=== PATIENT | male | born 1985 | race Caucasian/White ===

== ENCOUNTER → 2018-02-26 18:54 | Emergency (ER) | payer OTHER, MEDICARE, MEDICAID ==
[2018-02-26 19:15] VITALS: BP 137/116
--- NOTE | 2018-02-26 20:17 | ED ---
GI/ HPI - HPI Summary HPI Summary: Per family, patient with history of cerebral palsy has decreased urine output, increase in chronic agitation, diaphoresis since this a.m. Per family no other observed symptoms of illness or pain, including cough, N/V/D, SOB. Patient has [place] catheter. Patient has chronic back pain with a baclofen pump. Medical history as HTN, cerebral palsy, as reflux. 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 Hx From Patient Unobtainable Due To: Other Onset/Duration: Started Hours Ago Pain Intensity: 0 - Allergy/Home Medications Allergies/Adverse Reactions: Allergies Allergy/AdvReac Type Severity Reaction Status Date / Time atropine Allergy Eyes Verified 02/26/18 19:18 Itchy/Swollen/Red/Watery codeine Allergy Anaphylatic Verified 02/26/18 19:18 Shock midazolam [From Versed] Allergy Anaphylatic Verified 02/26/18 19:18 Shock omeprazole [From Prilosec] Allergy Difficulty Verified 02/26/18 19:18 Breathing scopolamine Allergy Eyes Verified 02/26/18 19:18 Itchy/Swollen/Red/Watery Sulfa (Sulfonamide Allergy Hives Verified 02/26/18 19:18 Antibiotics) PMH/Surg Hx/FS Hx/Imm Hx Endocrine/Hematology History: Denies: Hx Diabetes Cardiovascular History: Reports: Hx Hypertension Denies: Hx Pacemaker/ICD Respiratory History: Denies: Hx Asthma GI History: Reports: Hx Gastroesophageal Reflux Disease, Hx Hiatal Hernia Musculoskeletal History: Reports: Hx Scoliosis Sensory History: Reports: Hx Contacts or Glasses Denies: Hx Hearing Aid Opthamlomology History: Reports: Hx Contacts or Glasses Neurological History: Reports: Other Neuro Impairments/Disorders - CP Psychiatric History: Denies: Hx Panic Disorder - Surgical History Surgery Procedure, Year, and Place: ROSETOMY (nerves in back),TENDONS IN LEGS, RODS IN BACK AND HIP, HIATIAL HERNIA TWICE,CEREBRAL PALSEY. Infectious Disease History: No Infectious Disease History: Reports: Hx of Known/Suspected MRSA Denies: Traveled Outside the [place] in Last 30 Days - Family History Known Family History: Positive: Cardiac Disease, Hypertension, Other - dementia (mother) - Social History Alcohol Use: unable to determine Substance Use Type: Reports: None Smoking Status (MU): Never Smoked Tobacco Review of Systems - ROS Summary Review of Systems Summary: All answers provided by family. Patient unable to express himself Positive: Skin Diaphoresis Eyes: Negative ENT: Negative Cardiovascular: Negative Respiratory: Negative Gastrointestinal: Negative Genitourinary: Negative Musculoskeletal: Negative Skin: Negative Neurological: Negative Psychological: Normal All Other Systems Reviewed And Are Negative: Yes Physical Exam Triage Information Reviewed: Yes Vital Signs On Initial Exam: Initial Vitals Temp Pulse Resp BP Pulse Ox 99.3 F 126 20 137/116 100 02/26/18 19:10 02/26/18 19:10 02/26/18 19:10 02/26/18 19:10 02/26/18 19:10 Vital Signs Reviewed: Yes Skin: Positive: Warm Head/Face: Positive: Normal Head/Face Inspection Eyes: Positive: Normal ENT: Positive: Normal ENT inspection Neck: Positive: Supple Respiratory/Lung Sounds: Positive: Clear to Auscultation Cardiovascular: Positive: Normal Abdomen Description: Positive: Nontender Musculoskeletal: Positive: Normal Neurological: Positive: Normal Psychiatric: Positive: Normal AVPU Assessment: Alert - Nayeli Coma Scale Best Eye Response: 4 - Spontaneous Best Motor Response: 6 - Obeys Commands Best Verbal Response: 5 - Oriented Coma Scale Total: 15 Diagnostics - Vital Signs Vital Signs Temp Pulse Resp BP Pulse Ox 02/26/18 19:10 99.3 F 126 20 137/116 100 - Laboratory Result Diagrams: 02/26/18 20:19 02/26/18 20:19 Lab Statement: Any lab studies that have been ordered have been reviewed, and results considered in the medical decision making process. - Radiology abdo Xray Interpretation: Positive (See Comments) - dilated bowel, stool burden Radiology Interpretation Completed By: Radiologist Re-Evaluation - Re-Evaluation 1 Re-Evaluation Time: 21:22 Comment: Caregivers now saying that patient has not had a bowel movement in a week, but appear unsure that. Will x-ray abdomen GIGU Course/Dx - Course Course Of Treatment: Patient with history of cerebral palsy brought by family for concern of lack of urine output, increased agitation and diaphoresis since this a.m,. Bladder scan revealed 200ml, and 200 ml extracted with catheterization. Vital signs within normal limits. Elevated white count, labs otherwise within normal limits. Abdominal x-ray positive for dilated bowel with large stool burden. Disimpaction performed digitally. Subsequent Soap suds enema. Enema continued until soft stools produced. Recommend follow-up with primary care for management of constipation - Diagnoses Provider Diagnoses: Constipation Discharge - Sign-Out/Discharge Documenting (check all that apply): Discharge/Admit/Transfer - Discharge Plan Condition: Stable Disposition: HOME Patient Education Materials: Constipation (ED), High Fiber Diet (ED) Referrals: Luis Arreola MD [Primary Care Provider] - Additional Instructions: Follow-up with primary care for management of constipation. Return to the ED for any new or worsening symptoms - Billing Disposition and Condition Condition: STABLE Disposition: HOME
[2018-02-26 20:26] LABS: ABS Basophils 0.1 10^3/ul (0-0.2); ABS Eosinophils 0 10^3/ul (0-0.6); ABS Monocytes 1.2 10^3/ul (0-0.8); ABS Neutrophils 9.4 10^3/ul (1.5-7.7); ABS Nucleated RBC 0 10^3/ul; Eosinophil % 0.1 % (0-6); Hematocrit 43 % (42-52); Hemoglobin 14.5 g/dl (14.0-18.0); Lymphocyte % 15.4 % (25-47); Mean Corpuscular HGB Conc 34 g/dl (31-36); Mean Corpuscular Hemoglobin 30 pg (27-31); Mean Corpuscular Volume 88 fL (80-94); Mean Platelet Volume 8.5 um3 (7.4-10.4); Nucleated Red Blood Cells % 0.1; Platelet Count 276 10^3/ul (150-450); Red Blood Count 4.84 10^6/ul (4.0-5.4); Red Cell Distribution Width 14 % (10.5-15); White Blood Count 12.6 10^3/ul (3.5-10.8)
[2018-02-26 20:43] LABS: EGFR Non-African American 139.9 (>60)
[2018-02-26 21:01] LABS: Urine Appearance Cloudy; Urine Blood Negative (Negative); Urine Color Amber; Urine Ketones 1+ (Negative); Urine Protein 2+(100 mg/dL) (Negative); Urine Urobilinogen Negative (Negative)
--- NOTE | 2018-02-26 21:51 | RAD ---
INDICATION: No bowel movement x1 week COMPARISON: KUB dated September 27, 2016 TECHNIQUE: Supine and upright views of the abdomen were obtained. FINDINGS: There are multiple air-filled dilated loops of bowel measuring up to 9.4 cm in diameter at the transverse colon. More distally there is a large amount of stool overlying the expected location of the rectum measuring up to 11.3 cm in diameter. There is no definite free intraperitoneal gas. Chronic bony deformities and degenerative changes are again noted unchanged from the prior radiograph. IMPRESSION: Dilated loops of gas-filled bowel with what appears to be a large amount of stool overlying the 11.3 cm diameter rectum. Please correlate to signs or symptoms of fecal impaction. There is no visible free air in the peritoneum.
== END | disposition home or self-care (01) ==
LOC: ED 18:54
DX: K59.00 Constipation, unspecified (principal); D72.829 Elevated white blood cell count, unspecified; G80.9 Cerebral palsy, unspecified; I10 Essential (primary) hypertension; K21.9 Gastro-esophageal reflux disease without esophagitis; Z88.5 Allergy status to narcotic agent; Z88.2 Allergy status to sulfonamides; Z88.8 Allergy status to other drugs, medicaments and biological substances
CPT/HCPCS: 36415; 74019; 80053; 81003; 81015; 83605; 85025; 86140; 87086; 99283

== ENCOUNTER 2018-09-05 18:37 | Emergency (ER) | payer OTHER, MEDICARE, MEDICAID ==
[2018-09-05 19:46] LABS: ABS Basophils 0.1 10^3/ul (0-0.2); ABS Eosinophils 0.2 10^3/ul (0-0.6); ABS Lymphocytes 1.7 10^3/ul (1.0-4.8); ABS Monocytes 0.5 10^3/ul (0-0.8); ABS Neutrophils 5.3 10^3/ul (1.5-7.7); ABS Nucleated RBC 0 10^3/ul; Eosinophil % 2.9 %; Hematocrit 41 % (42-52); Hemoglobin 13.8 g/dl (14.0-18.0); Lymphocyte % 21.3 %; Mean Corpuscular HGB Conc 34 g/dl (31-36); Mean Corpuscular Hemoglobin 30 pg (27-31); Mean Corpuscular Volume 88 fL (80-94); Mean Platelet Volume 9.2 fL (7.4-10.4); Nucleated Red Blood Cells % 0; Platelet Count 196 10^3/ul (150-450); Red Blood Count 4.64 10^6/ul (4.00-5.40); Red Cell Distribution Width 14 % (10.5-15); Urine Appearance Cloudy; Urine Blood Negative (Negative); Urine Color Amber; Urine Ketones Negative (Negative); Urine Protein Negative (Negative); Urine Specific Gravity 1.025 (1.010-1.030); Urine Urobilinogen Negative (Negative); White Blood Count 7.8 10^3/ul (3.5-10.8)
[2018-09-05 19:58] LABS: EGFR Non-African American 161.4 (>60)
--- NOTE | 2018-09-05 20:19 | ED ---
GI/ HPI - HPI Summary HPI Summary: Patient with history of cerebral palsy and [place] catheter complains of urinary retention since last night, with associated abdominal pain in left lower quadrant and decreased appetite. Family states patient often has decreased appetite when he is uncomfortable. Patient himself does not yes when asked if he has abdominal pain. Family and patient denies fever, cough, sore throat, CP , SOB, N/V/D, change in BM, penile or testicular symptoms. Medical history is CP, GERD, HTN. - History of Current Complaint Chief Complaint: EDUrogenitalProblems Time Seen by Provider: 09/05/18 19:07 Stated Complaint: INABILITY TO URINATE Hx Obtained From: Patient, Family/[employer] Information [employer] Supervisor Onset/Duration: Started Hours Ago Timing: Constant Severity: Mild Current Severity: Mild Pain Intensity: 2 Location of Pain: Diffuse Pain Characteristics: Pressure Associated Signs and Symptoms: Positive: Change in Appetite, Abdominal Pain Aggravating Factor(s): Nothing Alleviating Factor(s): Nothing - Allergy/Home Medications Allergies/Adverse Reactions: Allergies Allergy/AdvReac Type Severity Reaction Status Date / Time atropine Allergy Eyes Verified 09/05/18 18:44 Itchy/Swollen/Red/Watery codeine Allergy Anaphylatic Verified 09/05/18 18:44 Shock midazolam [From Versed] Allergy Anaphylatic Verified 09/05/18 18:44 Shock omeprazole [From Prilosec] Allergy Difficulty Verified 09/05/18 18:44 Breathing scopolamine Allergy Eyes Verified 09/05/18 18:44 Itchy/Swollen/Red/Watery Sulfa (Sulfonamide Allergy Hives Verified 09/05/18 18:44 Antibiotics) PMH/Surg Hx/FS Hx/Imm Hx Endocrine/Hematology History: Denies: Hx Anticoagulant Therapy, Hx Diabetes Cardiovascular History: Reports: Hx Hypertension Denies: Hx Pacemaker/ICD Respiratory History: Denies: Hx Asthma GI History: Reports: Hx Gastroesophageal Reflux Disease, Hx Hiatal Hernia Musculoskeletal History: Reports: Hx Scoliosis Sensory History: Reports: Hx Contacts or Glasses Denies: Hx Hearing Aid Opthamlomology History: Reports: Hx Contacts or Glasses Neurological History: Reports: Other Neuro Impairments/Disorders - CP Psychiatric History: Denies: Hx Panic Disorder - Surgical History Surgery Procedure, Year, and Place: ROSETOMY (nerves in back),TENDONS IN LEGS, RODS IN BACK AND HIP, HIATIAL HERNIA TWICE,CEREBRAL PALSEY. Infectious Disease History: No Infectious Disease History: Reports: Hx of Known/Suspected MRSA Denies: Traveled Outside the [place] in Last 30 Days - Family History Known Family History: Positive: Cardiac Disease, Hypertension, Other - dementia (mother) - Social History Alcohol Use: None Substance Use Type: Reports: None Smoking Status (MU): Never Smoked Tobacco Review of Systems Constitutional: Negative Eyes: Negative ENT: Negative Cardiovascular: Negative Respiratory: Negative Positive: Abdominal Pain Positive: see HPI Musculoskeletal: Negative Skin: Negative Neurological: Negative Psychological: Normal All Other Systems Reviewed And Are Negative: Yes Physical Exam - Summary Physical Exam Summary: Mild tenderness with palpation of lower abdomen bilaterally. Abdominal exam otherwise unremarkable. Triage Information Reviewed: Yes Vital Signs On Initial Exam: Initial Vitals Temp Pulse Resp BP Pulse Ox 98.6 F 94 20 135/86 97 09/05/18 18:40 09/05/18 18:40 09/05/18 18:40 09/05/18 18:40 09/05/18 18:40 Vital Signs Reviewed: Yes Appearance: Positive: Well-Appearing Skin: Positive: Warm Head/Face: Positive: Normal Head/Face Inspection Eyes: Positive: Normal Neck: Positive: Supple Respiratory/Lung Sounds: Positive: Clear to Auscultation Cardiovascular: Positive: Normal Abdomen Description: Positive: Other: Musculoskeletal: Positive: Normal Neurological: Positive: Normal Psychiatric: Positive: Normal AVPU Assessment: Alert - Nayeli Coma Scale Best Eye Response: 4 - Spontaneous Best Motor Response: 6 - Obeys Commands Best Verbal Response: 5 - Oriented Coma Scale Total: 15 Diagnostics - Vital Signs Vital Signs Temp Pulse Resp BP Pulse Ox 09/05/18 18:40 98.6 F 94 20 135/86 97 - Laboratory Lab Results: Lab Results 09/05/18 09/05/18 09/05/18 Range/Units 19:28 19:28 19:28 WBC 7.8 (3.5-10.8) 10^3/ul RBC 4.64 (4.00-5.40) 10^6/ul Hgb 13.8 L (14.0-18.0) g/dl Hct 41 L (42-52) % MCV 88 (80-94) fL MCH 30 (27-31) pg MCHC 34 (31-36) g/dl RDW 14 (10.5-15) % Plt Count 196 (150-450) 10^3/ul MPV 9.2 (7.4-10.4) fL Neut % (Auto) 68.2 % Lymph % (Auto) 21.3 % [place] % (Auto) 6.6 % Eos % (Auto) 2.9 % Baso % (Auto) 1.0 % Absolute Neuts (auto) 5.3 (1.5-7.7) 10^3/ul Absolute Lymphs (auto) 1.7 (1.0-4.8) 10^3/ul Absolute Monos (auto) 0.5 (0-0.8) 10^3/ul Absolute Eos (auto) 0.2 (0-0.6) 10^3/ul Absolute Basos (auto) 0.1 (0-0.2) 10^3/ul Absolute Nucleated RBC 0 10^3/ul Nucleated RBC % 0 Sodium 134 L (135-145) mmol/L Potassium 3.7 (3.5-5.0) mmol/L Chloride 101 (101-111) mmol/L Carbon Dioxide 28 (22-32) mmol/L Anion Gap 5 (2-11) mmol/L BUN 16 (6-24) mg/dL Creatinine 0.58 L (0.67-1.17) mg/dL Est GFR ( Amer) 195.2 (>60) Est GFR (Non-Af Amer) 161.4 (>60) BUN/Creatinine Ratio 27.6 H (8-20) Glucose 109 H (70-100) mg/dL Calcium 9.1 (8.6-10.3) mg/dL Total Bilirubin 0.30 (0.2-1.0) mg/dL AST 20 (13-39) U/L ALT 15 (7-52) U/L Alkaline Phosphatase 89 (34-104) U/L Total Protein 7.3 (6.4-8.9) g/dL Albumin 4.1 (3.2-5.2) g/dL Globulin 3.2 (2-4) g/dL Albumin/Globulin Ratio 1.3 (1-3) Urine Color Felicia Urine Appearance Cloudy Urine pH 5.0 (5-9) Ur Specific [place] 1.025 (1.010-1.030) Urine Protein Negative (Negative) Urine Ketones Negative (Negative) Urine Blood Negative (Negative) Urine Nitrate Negative (Negative) Urine Bilirubin Negative (Negative) Urine Urobilinogen Negative (Negative) Ur Leukocyte Esterase Negative (Negative) Urine Glucose Negative (Negative) Urine Ascorbic Acid * A (Negative) Result Diagrams: 09/05/18 19:28 09/05/18 19:28 Lab Statement: Any lab studies that have been ordered have been reviewed, and results considered in the medical decision making process. GIGU Course/Dx - Course Course Of Treatment: Patient with history of cerebral palsy and [place] catheter complains of urinary retention since last night, with associated abdominal pain in left lower quadrant and decreased appetite. Family states patient often has decreased appetite when he is uncomfortable. Patient himself does not yes when asked if he has abdominal pain. Family and patient denies fever, cough, sore throat, CP, SOB, N/V/D, change in BM, penile or testicular symptoms. Medical history is CP, GERD, HTN. Physical exam:Mild tenderness with palpation of lower abdomen bilaterally. Abdominal exam otherwise unremarkable. History of [place] catheter. Patient nods yes and smiles when asked if [place] catheter has relieved his symptoms. Patient immediately produced 400 mL through [place] catheter when placed. Labs unremarkable. UA negative. Follow-up with urology. Patient has urologist in [place]. - Diagnoses Provider Diagnoses: Urinary retention Discharge - Sign-Out/Discharge Documenting (check all that apply): Patient Departure - Discharge Plan Condition: Stable Disposition: HOME Patient Education Materials: Urinary Retention in Men (ED) Referrals: Luis Arreola MD [Primary Care Provider] - Additional Instructions: Follow-up with primary care and your urologist for further evaluation of urinary retention. Leave Luke catheter in place until evaluated. Return to the ED for any new or worsening symptoms - Billing Disposition and Condition Condition: STABLE Disposition: Home
[2018-09-05 20:54] VITALS: BP 140/89
== END 2018-09-05 20:56 | disposition home or self-care (01) ==
LOC: ED 18:37
DX: R33.9 Retention of urine, unspecified (principal); R10.9 Unspecified abdominal pain; Z88.5 Allergy status to narcotic agent; I10 Essential (primary) hypertension; K21.9 Gastro-esophageal reflux disease without esophagitis; G80.9 Cerebral palsy, unspecified
CPT/HCPCS: 36415; 80053; 81003; 85025; 99282

== ENCOUNTER 2018-10-08 15:56 | Emergency (ER) | payer OTHER, MEDICARE, MEDICAID ==
--- NOTE | 2018-10-08 17:23 | ED ---
GI/ HPI - HPI Summary HPI Summary: Patient is a 33-year-old male who presents emergency department for a Su catheter issue. Patient has a history of cerebral palsy and has an indwelling Su catheter. Patient's family states that patient pulled catheter out earlier today. Family member who is a nurse states that entire catheter was intact. Nurse family member states she tried to place a new catheter but was unable to get it to drain. Family notes pt. has been bleeding quit a bit from urethra. Pt. is not anticoagulated. Sxs are mild in severity. No current modifying factors. 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 Pain Intensity: 0 - Allergy/Home Medications Allergies/Adverse Reactions: Allergies Allergy/AdvReac Type Severity Reaction Status Date / Time atropine Allergy Eyes Verified 10/08/18 16:08 Itchy/Swollen/Red/Watery codeine Allergy Anaphylatic Verified 10/08/18 16:08 Shock midazolam [From Versed] Allergy Anaphylatic Verified 10/08/18 16:08 Shock omeprazole [From Prilosec] Allergy Difficulty Verified 10/08/18 16:08 Breathing scopolamine Allergy Eyes Verified 10/08/18 16:08 Itchy/Swollen/Red/Watery Sulfa (Sulfonamide Allergy Hives Verified 10/08/18 16:08 Antibiotics) PMH/Surg Hx/FS Hx/Imm Hx Previously Healthy: Yes Endocrine/Hematology History: Denies: Hx Anticoagulant Therapy, Hx Diabetes Cardiovascular History: Reports: Hx Hypertension Denies: Hx Pacemaker/ICD Respiratory History: Denies: Hx Asthma GI History: Reports: Hx Gastroesophageal Reflux Disease, Hx Hiatal Hernia Musculoskeletal History: Reports: Hx Scoliosis Sensory History: Reports: Hx Contacts or Glasses Denies: Hx Hearing Aid Opthamlomology History: Reports: Hx Contacts or Glasses Neurological History: Reports: Other Neuro Impairments/Disorders - CP Psychiatric History: Denies: Hx Panic Disorder - Surgical History Surgery Procedure, Year, and Place: ROSETOMY (nerves in back),TENDONS IN LEGS, RODS IN BACK AND HIP, HIATIAL HERNIA TWICE,CEREBRAL PALSEY. Infectious Disease History: No Infectious Disease History: Reports: Hx of Known/Suspected MRSA Denies: Traveled Outside the [place] in Last 30 Days - Family History Known Family History: Positive: Cardiac Disease, Hypertension, Other - dementia (mother) - Social History Occupation: Disabled Lives: With Family Alcohol Use: None Substance Use Type: Reports: None Smoking Status (MU): Never Smoked Tobacco Review of Systems Positive: hematuria All Other Systems Reviewed And Are Negative: Yes Physical Exam Triage Information Reviewed: Yes Vital Signs On Initial Exam: Initial Vitals Temp Pulse Resp BP Pulse Ox 98.0 F 94 16 125/91 99 10/08/18 16:03 10/08/18 16:03 10/08/18 16:03 10/08/18 16:03 10/08/18 16:03 Vital Signs Reviewed: Yes Appearance: Positive: Well-Appearing - Pt. lying in wheelchair in NAD. Family present. Skin: Positive: Warm, Dry Head/Face: Positive: Normal Head/Face Inspection Eyes: Positive: Normal, EOMI Male Genital Exam: Positive: Other - Large amount of coagulated blood noted in diaper. Blood clot removed from the tip of penis and pina blood started flowing from urethra. Neurological: Positive: CN Intact II-III Psychiatric: Positive: Affect/Mood Appropriate Diagnostics - Vital Signs Vital Signs Temp Pulse Resp BP Pulse Ox 10/08/18 16:03 98.0 F 94 16 125/91 99 - Laboratory Result Diagrams: 10/08/18 18:30 Lab Statement: Any lab studies that have been ordered have been reviewed, and results considered in the medical decision making process. GIGU Course/Dx - Course Course Of Treatment: Pt. presenting with pina bleeding from urethra after pulling out inflated su catheter. VS are stable. Case discussed with Dr. Chapa who discussed case with urologist, Dr. Wilkins, who recommends reinserting catheter and irrigating bladder. He also recommends a dose of IV antibx given trauma. Catheter was replaced by nurse without difficulty and flushed. CBC shows normal RBC. WBC was incidently noted to be 1.6. Leukopenia was discussed with Dr. Manuel who recommends outpt. f.u. Labs discussed with family. To call PCP tomorrow for a close f.u apt. To f.u with urologist as well. Family understands and agrees with plan. - Diagnoses Provider Diagnoses: Dislodged Su catheter, Internal injury, urethra, closed Discharge - Sign-Out/Discharge Documenting (check all that apply): Patient Departure - Discharge Plan Condition: Improved Disposition: HOME Patient Education Materials: Su Catheter Placement and Care (ED) Referrals: Luis Arreola MD [Primary Care Provider] - Additional Instructions: Call your PCP tomorrow for a close follow up appointment and repeat blood work Return to ER if symptoms change or worsen - Billing Disposition and Condition Condition: IMPROVED Disposition: Home
[2018-10-08] MEDS ORDERED: cefTRIAXone(*) 1 GM in NS 0.9% 50 ML* 50 ML IVPB ONE (17:39)
[2018-10-08 19:37] LABS: Hematocrit 50 % (42-52); Mean Corpuscular HGB Conc 32 g/dl (31-36); Mean Corpuscular Hemoglobin 29 pg (27-31); Mean Corpuscular Volume 90 fL (80-94); Platelet Count 189 10^3/ul (150-450); Red Cell Distribution Width 15 % (10.5-15); White Blood Count 1.6 10^3/ul (3.5-10.8)
[2018-10-08 19:44] LABS: ABS Basophils 0 10^3/ul (0-0.2); ABS Eosinophils 0 10^3/ul (0-0.6); ABS Neutrophils 1.3 10^3/ul (1.5-7.7); Large Platelets Present; Lymphocytes % 17 %; Monocytes % 1 %; Neutrophil % 81 %
[2018-10-08 20:20] VITALS: BP 0/0
== END 2018-10-08 20:19 | disposition home or self-care (01) ==
LOC: ED 15:56
DX: T83.028A Displacement of other urinary catheter, initial encounter (principal); S09.93XA Unspecified injury of face, initial encounter; X58.XXXA Exposure to other specified factors, initial encounter; Y92.9 Unspecified place or not applicable; Z88.5 Allergy status to narcotic agent; Z88.2 Allergy status to sulfonamides; Z88.8 Allergy status to other drugs, medicaments and biological substances
CPT/HCPCS: 36415; 51702; 85025; 96365; 99282; J0696

== ENCOUNTER 2019-10-23 12:23 | Observation (INO) | payer MEDICARE, OTHER, MEDICAID ==
--- OUTSIDE RECORDS SUMMARY | 2019-10-23 12:48 | XMS REPORT ---
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, bladder, not not elsewhere elsewhere classified classified 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, palsy, 12-03 Carrier RN unspecified unspecified Safety cannot be Safety Resolve 2017-102019-01-30 Jenn left alone d 12-03 15:30:00 (Mustapha) 08:45: Denney 00 [id number] Elimination catheter Eliminatio Resolve 2018-12-06 Elmer present n d 11-04 15:55:00 Eliu 16:00: [id number] 00 Elimination bowel Eliminatio Resolve 2018-12-26 Elmer incontinenc n d 11-04 08:55:00 Eliu bautista 16:00: [id number] 00 Sensory impaired Sensory Resolve 2019-01-30 Elmer verbal d 12-06 15:30:00 Eliu communicati 15:55: [id number] on 00 Integument skin Integument Resolve 2019-01-30 Elmer integrity d 12-06 15:30:00 Eliu risk 15:55: [id number] 00 Neuro impaired Neuro/Emot Resolve 2019-01-30 Elmer decision-ma ion d 12-06 15:30:00 Eliu wilson 15:55: [id number] 00 Activity ADL Activity Resolve 2019-01-30 Elmer assistance d 12-06 15:30:00 Eliu phillips 15:55: [id number] 00 Activity patient Activity Resolve 2019-01-30 Elmer bedbound d 12-06 15:30:00 Eliu 15:55: [id number] 00 Activity self-care Activity Resolve 2019-01-30 Elmer deficit d 12-06 15:30:00 Eliu 15:55: [id number] 00 Safety fall risk Safety Resolve 2018-12-06 Elmer factor d 12-06 15:55:00 Nowak present 15:55: [id number] 00 Safety risk for Safety Resolve 2018-12-06 Elmer hospitaliza d 12-06 15:55:00 Nowak tion 15:55: [id number] 00 Medication injectable Meds Resolve 2019-03-28 Elmer med d 12-06 15:00:00 Nowak assistance 15:55: [id number] required 00 Musculoskel transfer Musculoske Resolve 2019-01-30 Elmer etal assistance letal d 12-06 15:30:00 Nowak required 15:55: [id number] 00 Musculoskel requires Musculoske Resolve 2019-01-30 Elmer etal human letal d 12-06 15:30:00 Nowak assist to 15:55: [id number] leave home 00 Musculoskel requires Musculoske Resolve 2019-01-30 Elmer etal special letal d 12-06 15:30:00 Eliu transportat 15:55: [id number] ion 00 Safety can be left Safety Resolve 2019-03-28 Elmer alone for d 12-09 15:00:00 Eliu tirado short 15:00: [id number] periods 00 Elimination catheter Eliminatio Resolve 2019-01-30 Elmer present n d 12-26 15:30:00 Eliu 08:55: [id number] 00 Elimination bowel Eliminatio Resolve 2019-01-30 Elmer incontinenc n d 01-30 15:30:00 Eliu bautista 15:30: [id number] 00 Safety fall risk Safety Resolve 2019-03-28 Elmer factor d 01-30 15:00:00 Nowak present 15:30: [id number] 00 Safety risk for Safety Resolve 2019-03-28 Elmer hospitaliza d 01-30 15:00:00 [place]ak tion 15:30: [id number] 00 Elimination bowel Eliminatio Resolve 2019-03-28 Elmer incontinenc n d 5- 15:00:00 Nowak e 16:00: [id number] 00 Safety cannot be Safety Resolve 2019-03-28 Elmer left alone d 5- 15:00:00 Nowak 16:00: [id number] 00 Integument skin Integument Resolve 2019-03-28 Elmer integrity d 6- 15:00:00 Nowak risk 15:00: [id number] 00 Elimination catheter Eliminatio Resolve 2019-03-28 Elmer present n d 6- 15:00:00 Eliu 15:00: [id number] 00 Neuro impaired Neuro/Emot Resolve 2019-03-28 Elmer decision-ma ion d 03-28 15:00:00 Eliu wilson 15:00: [id number] 00 Activity ADL Activity Resolve 2019-03-28 Elmer assistance d 6- 15:00:00 Nowak required 15:00: [id number] 00 Activity self-care Activity Resolve 2019-03-28 Elmer deficit d 6- 15:00:00 Eliu 15:00: [id number] 00 Musculoskel transfer Musculoske Resolve 2019-03-28 Elmer etal assistance letal d 03-28 15:00:00 Nowak required 15:00: [id number] 00 Musculoskel requires Musculoske Resolve 2019-03-28 Elmer etal human letal d 03-28 15:00:00 Nowak assist to 15:00: [id number] leave home 00 Safety cannot be Safety Resolve 2019-06-06 Elmer left alone d 04-04 16:00:00 Eliu 15:55: [id number] 00 Elimination catheter Eliminatio Active Elmer present n 7- Eliu 16:00: [id number] 00 Elimination bowel Eliminatio Active Elmer incontinenc n - Nowak e 16:00: [id number] 00 Integument skin Integument Active Elmer integrity 06-06 Nowak risk 16:00: [id number] 00 Neuro impaired Neuro/Emot Active 2019-0 Elmer decision-ma ion 8-30 Nowak katie 16:00: [id number] 00 Activity ADL Activity Active Elmer assistance 8-30 Nowak required 16:00: [id number] 00 Activity self-care Activity Active Elmer deficit 8-30 Nowak 16:00: [id number] 00 Safety fall risk Safety Active Elmer factor 8-30 Nowak present 16:00: [id number] 00 Musculoskel transfer Musculoske Active Elmer etal assistance letal 8-30 Nowak required 16:00: [id number] 00 Musculoskel requires Musculoske Active Elmer etal human letal 8-30 Nowak assist to 16:00: [id number] leave home 00 Musculoskel requires Musculoske Active Elmer etal special letal 8-30 Nowak transportat 16:00: [id number] ion 00 Safety cannot be Safety Active 2018-10 Evelyn left alone 0-04 Carrier RN 16:55: 00 Medication oral med Meds Resolve 2018-102019-09-05 Evelyn assistance d 0-21 10:05:00 Carrier RN required 16:45: 00 Allergies, Adverse Reactions, Alerts Allergy Name Allergy Status Severity Reaction(s) Onset Inactive Treating Comments Type Date Date Clinician atropine Base Active Unknown Reaction 2017-10 Jennifer White Ingredient Unknown 2-16 codeine Base Active Unknown Reaction 2017-10 Jennifer White Ingredient Unknown 2-16 midazolam Base Active Unknown Reaction 2017-10 Jennifer White Ingredient Unknown 2-16 omeprazole Base Active Unknown Reaction 2017-10 Jennifer White Ingredient Unknown 2-16 Medications Ordered Filled Start Stop Current Ordering Indication Dosage Frequency Signature Comments Components Medication Medication Date Date Medication? Clinician (SIG) Name Name metoprolol metoprolol 2017-10 No Stephen Unknown Unknown succinate succinate 12-03 Sawyer CHAUDHARY ER 25 mg ER 25 mg tablet,exte tablet,exte nded nded release 24 release 24 hr hr ascorbic ascorbic 2017-10 No Stephen Unknown Unknown acid acid 12-03 Sawyer CHAUDHARY (vitamin C) (vitamin C) 500 mg 500 mg capsule capsule Calcium 600 Calcium 600 2017-10 No Stephen Unknown Unknown with with 12-03 Sawyer CHAUDHARY Vitamin D3 Vitamin D3 600 mg 600 mg (1,500 (1,500 mg)-400 mg)-400 unit unit capsule capsule cranberry cranberry 2017-10 No Renettali Unknown Unknown concentrate concentrate 12-03 Sawyer CHAUDHARY -ascorbic -ascorbic acid 4,200 acid 4,200 mg-20 mg mg-20 mg capsule capsule diphenhydrA diphenhydrA 2017-10 No Makhuli Unknown Unknown MINE 25 mg MINE 25 mg 12-03 Sawyer CHAUDHARY capsule capsule sennosides sennosides 2017-10 No Makhuli Unknown Unknown 8.6 8.6 12-03 Sawyer CHAUDHARY mg-docusate mg-docusate sodium 50 sodium 50 mg tablet mg tablet esomeprazol esomeprazol 2017-10 No Rejihuli Unknown Unknown e magnesium e magnesium 12-03 ,Sawyer 40 mg 40 mg capsule,del capsule,del ayed ayed release release ibuprofen ibuprofen 2017-10 No Renettali Unknown Unknown 200 mg 200 mg 12-03 Sawyer CHAUDHARY tablet tablet lidocaine 5 lidocaine 5 2017-10 No Renettali Unknown Unknown % topical % topical 12-03 Sawyer CHAUDHARY patch patch multivitami multivitami 2017-10 No Maknoheliali Unknown Unknown n capsule n capsule 12-03 Sawyer CHAUDHARY QUEtiapine QUEtiapine 2017-10 No Renettali Unknown Unknown 25 mg 25 mg 12-03 Sawyer CHAUDHARY tablet tablet bisacodyl bisacodyl 2017-10 No Renettali Unknown Unknown 10 mg 10 mg 12-03 Sawyer CHAUDHARY rectal rectal suppository suppository tamsulosin tamsulosin No Renettali Unknown Unknown 0.4 mg 0.4 mg 12-06 Sawyer CHAUDHARY capsule capsule Rozerem 8 Rozerem 8 No Laisha Unknown Unknown mg tablet mg tablet 12-06 Michel CHAUDHARY miscellaneanaya 2018-10 Yes Renettali Unknown Unknown medical medical 11-05 Sawyer CHAUDHARY supply misc supply misc Vital Signs Vital Name Observation Time Observation Value Comments SYSTOLIC mm[Hg] 2019-10-02 18:09:33 128 mm[Hg] mm[Hg] Method: Sit SYSTOLIC mm[Hg] 2018-10-04 18:03:30 138 mm[Hg] mm[Hg] Method: Stand SYSTOLIC mm[Hg] 2019-07-27 18:08:26 128 mm[Hg] mm[Hg] Method: Lie DIASTOLIC mm[Hg] 2019-10-02 18:09:33 68 mm[Hg] mm[Hg] Method: Sit DIASTOLIC mm[Hg] 2018-10-04 18:03:30 76 mm[Hg] mm[Hg] Method: Stand DIASTOLIC mm[Hg] 2019-07-27 18:08:26 72 mm[Hg] mm[Hg] Method: Lie PULSE 2019-10-02 18:09:33 72 /min /min RESP RATE 2019-10-02 18:09:33 16 /min /min TEMP 2019-10-02 18:09:33 98.7 [degF] Procedures This patient has no known procedures. Results This patient has no known results.
--- OUTSIDE RECORDS SUMMARY | 2019-10-23 12:48 | XMS REPORT ---
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-03 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, bladder, not not elsewhere elsewhere classified classified 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, palsy, 12-03 Carrier RN unspecified unspecified Essential Essential Diagnosis Active 2018-10 Evelyn (primary) (primary) 12-03 Carrier RN hypertensio hypertensio n n Gastro-esop Gastro-esop Diagnosis Active 2018-10 Evelyn hageal hageal 12-03 Carrier RN reflux reflux disease disease without without esophagitis esophagitis Safety cannot be Safety Resolve 2017-102019-01-30 Jenn left alone d 12-03 15:30:00 (Mustapha) 08:45: Denney 00 [id number] Elimination catheter Eliminatio Resolve 2018-12-06 Elmer present n d 11-04 15:55:00 Eliu 16:00: [id number] 00 Elimination bowel Eliminatio Resolve 2018-12-26 Elmer incontinenc n d 11-04 08:55:00 Eliu bautista 16:00: [id number] 00 Sensory impaired Sensory Resolve 2019-01-30 Elmer verbal d 12-06 15:30:00 Eliu communicati 15:55: [id number] on 00 Integument skin Integument Resolve 2019-01-30 Elmer integrity d 12-06 15:30:00 Eliu risk 15:55: [id number] 00 Neuro impaired Neuro/Emot Resolve 2019-01-30 Elmer decision-ma ion d 12-06 15:30:00 Eliu katie 15:55: [id number] 00 Activity ADL Activity Resolve 2019-01-30 Elmer assistance d 12-06 15:30:00 Nowak required 15:55: [id number] 00 Activity patient Activity Resolve 2019-01-30 Elmer bedbound d 12-06 15:30:00 Eliu 15:55: [id number] 00 Activity self-care Activity Resolve 2019-01-30 Elmer deficit d 12-06 15:30:00 Nowak 15:55: [id number] 00 Safety fall risk Safety Resolve 2018-12-06 Elmer factor d 12-06 15:55:00 Eliu present 15:55: [id number] 00 Safety risk for Safety Resolve 2018-12-06 Elmer hospitaliza d 12-06 15:55:00 Eliu tion 15:55: [id number] 00 Medication injectable Meds Resolve 2019-03-28 Elmer med d 12-06 15:00:00 Nowak assistance 15:55: [id number] required 00 Musculoskel transfer Musculoske Resolve 2019-01-30 Elmer etal assistance letal d 12-06 15:30:00 Nowak required 15:55: [id number] 00 Musculoskel requires Musculoske Resolve 2019-01-30 Elmer etal human letal d 12-06 15:30:00 Nowak assist to 15:55: [id number] leave home 00 Musculoskel requires Musculoske Resolve 2019-01-30 Elmer etal special letal d 12-06 15:30:00 Eliu transportat 15:55: [id number] ion 00 Safety can be left Safety Resolve 2019-03-28 Elmer alone for d 12-09 15:00:00 Eliu tirado short 15:00: [id number] periods 00 Elimination catheter Eliminatio Resolve 2019-01-30 Elmer present n d 12-26 15:30:00 Eliu 08:55: [id number] 00 Elimination bowel Eliminatio Resolve 2019-01-30 Elmer incontinenc n d 01-30 15:30:00 Eliu bautista 15:30: [id number] 00 Safety fall risk Safety Resolve 2019-03-28 Elmer factor d - 15:00:00 Nowak present 15:30: [id number] 00 Safety risk for Safety Resolve 2019-03-28 Elmer hospitaliza d 4 15:00:00 [place]ak tion 15:30: [id number] 00 Elimination bowel Eliminatio Resolve 2019-03-28 Elmer incontinenc n d 03-07 15:00:00 Eliu e 16:00: [id number] 00 Safety cannot be Safety Resolve 2019-03-28 Elmer left alone d 5 15:00:00 Nowak 16:00: [id number] 00 Integument skin Integument Resolve 2019-03-28 Elmer integrity d 6 15:00:00 Nowak risk 15:00: [id number] 00 Elimination catheter Eliminatio Resolve 2019-03-28 Elmer present n d 6- 15:00:00 Eliu 15:00: [id number] 00 Neuro impaired Neuro/Emot Resolve 2019-03-28 Elmer decision-ma ion d 03-28 15:00:00 Eliu wilson 15:00: [id number] 00 Activity ADL Activity Resolve 2019-03-28 Elmer assistance d 6- 15:00:00 Nowak required 15:00: [id number] 00 Activity self-care Activity Resolve 2019-03-28 Elmer deficit d 6- 15:00:00 Eliu 15:00: [id number] 00 Musculoskel transfer Musculoske Resolve 2019-03-28 Elmer etal assistance letal d 03-28 15:00:00 Nowak required 15:00: [id number] 00 Musculoskel requires Musculoske Resolve 2019-03-28 Elmer etal human letal d 6 15:00:00 Nowak assist to 15:00: [id number] leave home 00 Safety cannot be Safety Resolve 2019-06-06 Elmer left alone d 6 16:00:00 Eliu 15:55: [id number] 00 Elimination catheter Eliminatio Active Elmer present n 7- Eliu 16:00: [id number] 00 Elimination bowel Eliminatio Active Elmer incontinenc n 7- [place]ak e 16:00: [id number] 00 Integument skin Integument Active Elmer integrity 8-30 Nowak risk 16:00: [id number] 00 Neuro impaired Neuro/Emot Active Elmer decision-ma ion 8-30 Eliu katie 16:00: [id number] 00 Activity ADL Activity Active Elmer assistance 830 Nowak required 16:00: [id number] 00 Activity self-care Activity Active Elmer deficit 8-30 Nowak 16:00: [id number] 00 Safety fall risk Safety Active Elmer factor 8-30 Nowak present 16:00: [id number] 00 Musculoskel transfer Musculoske Resolve 2019-10-02 Elmer etal assistance letal d 06-06 09:55:00 Nowak required 16:00: [id number] 00 Musculoskel requires Musculoske Resolve 2019-10-02 Elmer etal human letal d 06-06 09:55:00 Nowak assist to 16:00: [id number] leave home 00 Musculoskel requires Musculoske Resolve 2019-10-02 Elmer etal special letal d 06-06 09:55:00 Nowak transportat 16:00: [id number] ion 00 Safety cannot be Safety Resolve 2018-102019-10-02 Evelyn left alone d 0-04 09:55:00 Carrier RN 16:55: 00 Medication oral med Meds Resolve 2018-102019-09-05 Evelyn assistance d 0-21 10:05:00 Carrier RN required 16:45: 00 Cardio hypertensio Cardiovasc Active 2018-10 Evelyn castillo 12-03 Carrier RN 09:55: 00 Medication oral med Meds Resolve 2018-102019-10-02 Evelyn assistance d 2- 09:55:00 Carrier RN required 09:55: 00 Allergies, Adverse Reactions, Alerts Allergy Name Allergy Status Severity Reaction(s) Onset Inactive Treating Comments Type Date Date Clinician atropine Base Active Unknown Reaction 2017-10 Jennifer White Ingredient Unknown 2-16 codeine Base Active Unknown Reaction 2017-10 Jennifer White Ingredient Unknown 2-16 midazolam Base Active Unknown Reaction 2017-10 Jennifer White Ingredient Unknown 2-16 omeprazole Base Active Unknown Reaction 2017-10 Jennifer White Ingredient Unknown - Medications Ordered Filled Start Stop Current Ordering [...] capsule Calcium 600 Calcium 600 2017-10 No Renettali Unknown Unknown with with 12-03 Sawyer CHAUDHARY Vitamin D3 Vitamin D3 600 mg 600 mg (1,500 (1,500 mg)-400 mg)-400 unit unit capsule capsule cranberry cranberry 2017-10 No Stephen Unknown Unknown concentrate concentrate 12-03 Sawyer CHAUDHARY -ascorbic -ascorbic acid 4,200 acid 4,200 mg-20 mg mg-20 mg capsule capsule diphenhydrA diphenhydrA 2017-10 No Stephen Unknown Unknown MINE 25 mg MINE 25 mg 12-03 Sawyer CHAUDHARY capsule capsule sennosides sennosides 2017-10 No Stephen Unknown Unknown 8.6 8.6 12-03 Sawyer CHAUDHARY mg-docusate mg-docusate sodium 50 sodium 50 mg tablet mg tablet esomeprazol esomeprazol 2017-10 No Stephen Unknown Unknown e magnesium e magnesium 12-03 Sawyer CHAUHDARY 40 mg 40 mg capsule,del capsule,del ayed ayed release release ibuprofen ibuprofen 2017-10 No Stephen Unknown Unknown 200 mg 200 mg 12-03 Sawyer CHAUDHARY tablet tablet lidocaine 5 lidocaine 5 2017-10 No Stephen Unknown Unknown % topical % topical 12-03 Sawyer CHAUDHARY patch patch multivitami multivitami 2017-10 No Stephen Unknown Unknown n capsule n capsule 12-03 Sawyer CHAUDHARY QUEtiapine QUEtiapine 2017-10 No Stephen Unknown Unknown 25 mg 25 mg 12-03 Sawyer CHAUDHARY tablet tablet bisacodyl bisacodyl 2017-10 No Stephen Unknown Unknown 10 mg 10 mg 12-03 Sawyer CHAUDHARY rectal rectal suppository suppository tamsulosin tamsulosin No Stephen Unknown Unknown 0.4 mg 0.4 mg 12-06 Sawyer CHAUDHARY capsule capsule Rozerem 8 Rozerem 8 No Laisha Unknown Unknown mg tablet mg tablet 12-06 Michel CHAUDHARY 2018-10 Yes Stephen Unknown Unknown medical medical 11-05 Sawyer CHAUDHARY [...]
--- OUTSIDE RECORDS SUMMARY | 2019-10-23 12:48 | XMS REPORT ---
:1985 Author Organization [facility] Care Team Providers Name Role Phone [...] d 12-03 15:30:00 (Mustapha) 08:45: Denney 00 [id number] Elimination catheter Eliminatio Resolve 2018-12-06 Elmer present n d 11-04 15:55:00 Eliu 16:00: [id number] 00 Elimination bowel Eliminatio Resolve 2018-12-26 Elmer incontinenc n d 11-04 08:55:00 Eliu bautista 16:00: [id number] 00 Sensory impaired Sensory Resolve 2019-01-30 Elmer verbal d 12-06 15:30:00 Eliu communicati 15:55: [id number] on 00 Integument skin Integument Resolve 2019-01-30 Elmer integrity d 12-06 15:30:00 Eliu risk 15:55: [id number] 00 Neuro impaired Neuro/Emot Resolve 2019-01-30 Elmer decision-ma ion d 12-06 15:30:00 Eliu katei 15:55: [id number] 00 Activity ADL Activity Resolve 2019-01-30 Elmer assistance d 12-06 15:30:00 Nowak required 15:55: [id number] 00 Activity patient Activity Resolve 2019-01-30 Elmer bedbound d 12-06 15:30:00 Eliu 15:55: [id number] 00 Activity self-care Activity Resolve 2019-01-30 Elmer deficit d 12-06 15:30:00 Nowak 15:55: [id number] 00 Safety fall risk Safety Resolve 2018-12-06 Elmer factor d 12-06 15:55:00 Eliu present 15:55: [id number] 00 Safety risk for Safety Resolve 2018-12-06 Elmer hospitaliza d 12-06 15:55:00 Eliu tion 15:55: [id number] 00 Medication injectable Meds Resolve 2019-03-28 Elmer med d 12-06 15:00:00 Nowak assistance 15:55: [id number] required 00 Musculoskel transfer Musculoske Resolve 2019-01-30 Elmer etal assistance letal d 12-06 15:30:00 Nowak required 15:55: [id number] 00 Musculoskel requires Musculoske Resolve 2019-01-30 Elmer etal human letal d 12-06 15:30:00 Nowak assist to 15:55: [id number] leave home 00 Musculoskel requires Musculoske Resolve 2019-01-30 Elmer etal special letal d 12-06 15:30:00 Eliu transportat 15:55: [id number] ion 00 Safety can be left Safety Resolve 2019-03-28 Elmer alone for d 12-09 15:00:00 Eliu tirado short 15:00: [id number] periods 00 Elimination catheter Eliminatio Resolve 2019-01-30 Elmer present n d 12-26 15:30:00 Eliu 08:55: [id number] 00 Elimination bowel Eliminatio Resolve 2019-01-30 Elmer incontinenc n d 01-30 15:30:00 Eliu bautista 15:30: [id number] 00 Safety fall risk Safety Resolve 2019-03-28 Elmer factor d - 15:00:00 Nowak present 15:30: [id number] 00 Safety risk for Safety Resolve 2019-03-28 Elmer hospitaliza d 4 15:00:00 [place]ak tion 15:30: [id number] 00 Elimination bowel Eliminatio Resolve 2019-03-28 Elmer incontinenc n d 03-07 15:00:00 Eliu e 16:00: [id number] 00 Safety cannot be Safety Resolve 2019-03-28 Elmer left alone d 5 15:00:00 Nowak 16:00: [id number] 00 Integument skin Integument Resolve 2019-03-28 Elmer integrity d 6 15:00:00 [place]ak risk 15:00: [id number] 00 Elimination catheter Eliminatio Resolve 2019-03-28 Elmer present n d 6- 15:00:00 Eliu 15:00: [id number] 00 Neuro impaired Neuro/Emot Resolve 2019-03-28 Elmer decision-ma ion d 03-28 15:00:00 Eliu wilson 15:00: [id number] 00 Activity ADL Activity Resolve 2019-03-28 Elmer assistance d 6- 15:00:00 Nowak required 15:00: [id number] 00 Activity self-care Activity Resolve 2019-03-28 Elmer deficit d 6- 15:00:00 Eliu 15:00: [id number] 00 Musculoskel transfer Musculoske Resolve 2019-03-28 Elmer etal assistance letal d 03-28 15:00:00 Nowak required 15:00: [id number] 00 Musculoskel requires Musculoske Resolve 2019-03-28 Elmer etal human letal d 6 15:00:00 [place]ak assist to 15:00: [id number] leave home 00 Safety cannot be Safety Resolve 2019-06-06 Elmer left alone d 6 16:00:00 Eliu 15:55: [id number] 00 Elimination catheter Eliminatio Active Elmer present n 7- Eliu 16:00: [id number] 00 Elimination bowel Eliminatio Active Elmer incontinenc n 7- Nowak e 16:00: [id number] 00 Integument skin Integument Active Elmer integrity 8-30 Nowak risk 16:00: [id number] 00 Neuro impaired Neuro/Emot Active Elmer decision-ma ion 8-30 Eliu wilson 16:00: [id number] 00 Activity ADL Activity Active Elmer assistance 830 Nowak required 16:00: [id number] 00 Activity self-care Activity Active Elmer deficit 8-30 Nowka 16:00: [id number] 00 Safety fall risk Safety Active Elmer factor 830 Nowak present 16:00: [id number] 00 Musculoskel transfer Musculoske Resolve 2019-10-02 Elmer etal assistance letal d 06-06 09:55:00 Nowak required 16:00: [id number] 00 Musculoskel requires Musculoske Resolve 2019-10-02 Elmer etal human letal d 06-06 09:55:00 [place]ak assist to 16:00: [id number] leave home 00 Musculoskel requires Musculoske Resolve 2019-10-02 Elmer etal special letal d 06-06 09:55:00 Nowak transportat 16:00: [id number] ion 00 Safety cannot be Safety Resolve 2018-102019-10-02 Evelyn left alone d 0-04 09:55:00 Carrier RN 16:55: 00 Medication oral med Meds Resolve 2018-102019-09-05 Evelyn assistance d 0-21 10:05:00 Carrier RN required 16:45: 00 Cardio hypertensio Cardiovasc Active 2018-10 Evelyn castillo 12-03 Carrier RN 09:55: 00 Medication oral med Meds Resolve 2018-102019-10-02 Evelyn assistance d 2- 09:55:00 Carrier RN required 09:55: 00 Safety cannot be Safety Active Vonnie left alone 10-19 Bart 14:05: 00 Safety risk for Safety Active Vonnie hospitaliza 10-19 Bart tion 14:05: 00 Allergies, Adverse Reactions, Alerts Allergy Name Allergy Status Severity Reaction(s) Onset Inactive Treating Comments Type Date Date Clinician atropine Base Active Unknown Reaction 2017-10 Jennifer White Ingredient Unknown 11-23 codeine Base Active Unknown Reaction 2017-10 Jennifer White Ingredient Unknown 11-23 midazolam Base Active Unknown Reaction 2017-10 Jennifer White Ingredient Unknown 11-23 omeprazole Base Active Unknown Reaction 2017-10 Jennifer White Ingredient Unknown 11-23 Medications Ordered Filled Start Stop Current Ordering Indication Dosage Frequency Signature Comments Components Medication Medication Date Date Medication? Clinician (SIG) Name Name metoprolol metoprolol 2017-10 No Maknoheliali Unknown Unknown succinate succinate 12-03 Sawyer CHAUDHARY ER 25 mg ER 25 mg tablet,exte tablet,exte nded nded release 24 release 24 hr hr ascorbic ascorbic 2017-10 No Makhuli Unknown Unknown acid acid 12-03 Sawyer CHAUDHARY (vitamin C) (vitamin C) 500 mg 500 mg capsule capsule Calcium 600 Calcium 600 2017-10 No Maknoheliali Unknown Unknown with with 12-03 Sawyer CHAUDHARY Vitamin D3 Vitamin D3 600 mg 600 mg (1,500 (1,500 mg)-400 mg)-400 unit unit capsule capsule cranberry cranberry 2017-10 No Renettali Unknown Unknown concentrate concentrate 12-03 Sawyer CHAUDHARY -ascorbic -ascorbic acid 4,200 acid 4,200 mg-20 mg mg-20 mg capsule capsule diphenhydrA diphenhydrA 2017-10 No Renettali Unknown Unknown MINE 25 mg MINE 25 mg 12-03 Sawyer CHAUDHARY capsule capsule sennosides sennosides 2017-10 No Makhuli Unknown Unknown 8.6 8.6 12-03 Sawyer CHAUDHARY mg-docusate mg-docusate sodium 50 sodium 50 mg tablet mg tablet esomeprazol esomeprazol 2017-10 No Renettali Unknown Unknown e magnesium e magnesium 12-03 Sawyer CHAUDHARY 40 mg 40 mg capsule,del capsule,del ayed ayed release release ibuprofen ibuprofen 2017-10 No Reenttali Unknown Unknown 200 mg 200 mg 12-03 Sawyer CHAUDHARY tablet tablet lidocaine 5 lidocaine 5 2017-10 No Stephen Unknown Unknown % topical % topical 12-03 Sawyer CHAUDHARY patch patch multivitami multivitami 2017-10 No Makhuli Unknown Unknown n capsule n capsule 12-03 Sawyer CHAUDHARY QUEtiapine QUEtiapine 2017-10 No Stephen Unknown Unknown 25 mg 25 mg 12-03 Sawyer CHAUDHARY tablet tablet bisacodyl bisacodyl 2017-10 No Makhuli Unknown Unknown 10 mg 10 mg 12-03 Sawyer CHAUDHARY rectal rectal suppository suppository tamsulosin tamsulosin No Stephen Unknown Unknown 0.4 mg 0.4 mg 12-06 Sawyer CHAUDHARY capsule capsule Rozerem 8 Rozerem 8 No Laisha Unknown Unknown mg tablet mg tablet 12-06 Michel CHAUDHARY miscellaneanaya 2018-10 Yes Stephen Unknown Unknown medical medical 11-05 Sawyer CHAUDHARY supply misc supply misc Vital Signs Vital Name Observation Time Observation Value Comments SYSTOLIC mm[Hg] 2018-10-04 18:03:30 138 mm[Hg] mm[Hg] Method: Stand SYSTOLIC mm[Hg] 2019-07-27 18:08:26 128 mm[Hg] mm[Hg] Method: Lie DIASTOLIC mm[Hg] 2018-10-04 18:03:30 76 mm[Hg] mm[Hg] Method: Stand DIASTOLIC mm[Hg] 2019-07-27 18:08:26 72 mm[Hg] mm[Hg] Method: Lie RESP RATE 2019-10-19 18:09:50 18 /min /min TEMP 2019-10-19 18:09:50 99.2 [degF] Procedures This patient has no known procedures. Results This patient has no known results.
--- OUTSIDE RECORDS SUMMARY | 2019-10-23 12:48 | XMS REPORT ---
:1985 Author Organization [facility] Care Team Providers Name Role [...] d 12-03 15:30:00 (Mustapha) 08:45: Denney 00 [id number] Elimination catheter Eliminatio Resolve 2018-12-06 Elmer present n d 11-04 15:55:00 Eliu 16:00: [id number] 00 Elimination bowel Eliminatio Resolve 2018-12-26 Elmer incontinenc n d 11-04 08:55:00 Eliu bautista 16:00: [id number] 00 Sensory impaired Sensory Resolve 2019-01-30 Elmer verbal d 12-06 15:30:00 Eliu communicati 15:55: [id number] on 00 Integument skin Integument Resolve 2019-01-30 Elmer integrity d 12-06 15:30:00 Eliu risk 15:55: [id number] 00 Neuro impaired Neuro/Emot Resolve 2019-01-30 Elmer decision-ma ion d 12-06 15:30:00 Eliu katie 15:55: [id number] 00 Activity ADL Activity Resolve 2019-01-30 Elmer assistance d 12-06 15:30:00 [place]ak required 15:55: [id number] 00 Activity patient Activity Resolve 2019-01-30 Elmer bedbound d 12-06 15:30:00 Eliu 15:55: [id number] 00 Activity self-care Activity Resolve 2019-01-30 Elmer deficit d 12-06 15:30:00 Nowak 15:55: [id number] 00 Safety fall risk Safety Resolve 2018-12-06 Elmer factor d 12-06 15:55:00 Eliu present 15:55: [id number] 00 Safety risk for Safety Resolve 2018-12-06 Elmer hospitaliza d 12-06 15:55:00 Eliu tion 15:55: [id number] 00 Medication injectable Meds Resolve 2019-03-28 Elmer med d 12-06 15:00:00 [place]ak assistance 15:55: [id number] required 00 Musculoskel transfer Musculoske Resolve 2019-01-30 Elmer etal assistance letal d 12-06 15:30:00 [place]ak required 15:55: [id number] 00 Musculoskel requires Musculoske Resolve 2019-01-30 Elmer etal human letal d 12-06 15:30:00 [place]ak assist to 15:55: [id number] leave home 00 Musculoskel requires Musculoske Resolve 2019-01-30 Elmer etal special letal d 12-06 15:30:00 Eliu transportat 15:55: [id number] ion 00 Safety can be left Safety Resolve 2019-03-28 Elmer alone for d 12-09 15:00:00 Eliu tirado short 15:00: [id number] periods 00 Elimination catheter Eliminatio Resolve 2019-01-30 Elmer present n d 12-26 15:30:00 Eliu 08:55: [id number] 00 Elimination bowel Eliminatio Resolve 2019-01-30 Elmer incontinenc n d 01-30 15:30:00 Eliu bautista 15:30: [id number] 00 Safety fall risk Safety Resolve 2019-03-28 Elmer factor d - 15:00:00 Nowak present 15:30: [id number] 00 Safety risk for Safety Resolve 2019-03-28 Elmer hospitaliza d 4 15:00:00 [place]ak tion 15:30: [id number] 00 Elimination bowel Eliminatio Resolve 2019-03-28 Elmer incontinenc n d 03-07 15:00:00 Eliu e 16:00: [id number] 00 Safety cannot be Safety Resolve 2019-03-28 Elmer left alone d 5 15:00:00 [place]ak 16:00: [id number] 00 Integument skin Integument Resolve 2019-03-28 Elmer integrity d 6 15:00:00 Nowak risk 15:00: [id number] 00 Elimination catheter Eliminatio Resolve 2019-03-28 Elmer present n d 6- 15:00:00 Eliu 15:00: [id number] 00 Neuro impaired Neuro/Emot Resolve 2019-03-28 Elmer decision-ma ion d 03-28 15:00:00 Eliu wilson 15:00: [id number] 00 Activity ADL Activity Resolve 2019-03-28 Elmer assistance d 6- 15:00:00 [place]ak required 15:00: [id number] 00 Activity self-care Activity Resolve 2019-03-28 Elmer deficit d 6- 15:00:00 Eliu 15:00: [id number] 00 Musculoskel transfer Musculoske Resolve 2019-03-28 Elmer etal assistance letal d 03-28 15:00:00 Nowak required 15:00: [id number] 00 Musculoskel requires Musculoske Resolve 2019-03-28 Elmer etal human letal d 6 15:00:00 [place]ak assist to 15:00: [id number] leave home 00 Safety cannot be Safety Resolve 2019-06-06 Elmer left alone d 6 16:00:00 Eliu 15:55: [id number] 00 Elimination catheter Eliminatio Active Elmer present n 7- Eliu 16:00: [id number] 00 Elimination bowel Eliminatio Active Elmer incontinenc n 7- [place]ak e 16:00: [id number] 00 Integument skin Integument Active Elmer integrity 8-30 Nowak risk 16:00: [id number] 00 Neuro impaired Neuro/Emot Active Elmer decision-ma ion 8-30 Eliu katie 16:00: [id number] 00 Activity ADL Activity Active Elmer assistance 830 Nowak required 16:00: [id number] 00 Activity self-care Activity Active Elmer deficit 8-30 Nowak 16:00: [id number] 00 Safety fall risk Safety Active Elmer factor 8-30 Nowak present 16:00: [id number] 00 Musculoskel transfer Musculoske Resolve 2019-10-02 Elmer etal assistance letal d 06-06 09:55:00 Nowak required 16:00: [id number] 00 Musculoskel requires Musculoske Resolve 2019-10-02 Elmer etal human letal d 06-06 09:55:00 [place]ak assist to 16:00: [id number] leave home 00 Musculoskel requires Musculoske Resolve 2019-10-02 Elmer etal special letal d 06-06 09:55:00 Nowak transportat 16:00: [id number] ion 00 Safety cannot be Safety Resolve 2018-102019-10-02 Evelyn left alone d 0-04 09:55:00 Carrier RN 16:55: 00 Medication oral med Meds Resolve 2018-102019-09-05 Evleyn assistance d 0-21 10:05:00 Carrier RN required [...]
--- OUTSIDE RECORDS SUMMARY | 2019-10-23 12:48 | XMS REPORT | Summary of Care ---
:1985 Author Organization [facility] Address [address] [place] [address] Care Team Providers Name Role Phone Michel Interiano MD Primary Care Provider Reason for Referral Physical Therapy (Routine) Status Reason Specialty Diagnoses / Referred By Referred To Contact Procedures Contact Open Physical Medicine Diagnoses CP (cerebral palsy), spastic, quadriplegic Her, Ace Soto, 02n Rehabilitation and Rehabilitation Procedures Physical Therapy MD Pmr [address] [facility] 2nd [place] [id number] Email: [email or web address] Reason for Visit Reason Comments Other ITB management/refill Encounter Details Date Type Department Care Team Description 10/21/2019 Procedure visit Physical Medicine and Ace Linton, CP ( cerebral palsy), [facility] spastic, quadriplegic [address] [facility] [address] (Primary Dx) [place] [address] 2nd Floor [phone] [place], [place] [id number] Allergies Active Allergy Reactions Severity Noted Date Comments Atropine Anaphylaxis High 12/05/2012 Redness with eye drops Verified from [facility] 04-29-15 Codeine Anaphylaxis, Rash High 12/05/2012 Dad states makes pt "hyper" Verified from [facility] 04-29-15 Midazolam Hcl Anaphylaxis High 12/05/2012 Pt went into respiratory distress during test Verified from [facility] 04-29-15 Omeprazole Anaphylaxis High 09/28/2016 Verified from [facility] 04-29-15 Scopolamine 12/05/2012 Redness in eyes Sulfa Antibiotics Hives Low Verified from [facility] 04-29-15 Adhesive Tape Rash Low 12/05/2012 documented as of this encounter (statuses as of 10/21/2019) Medications Medication Sig Dispensed Refills Start Date End Date Status lidocaine (LIDODERM) Place 1 patch onto 0 Active 5 % the skin daily as needed. Vitamins A & D Take 1 tablet by 0 Active (VITAMIN A & D PO) mouth daily. QUEtiapine (SEROQUEL) Three times daily. 0 08/19/2016 Active 25 MG tablet Take 1 tablet by mouth in the morning, take 1 tablet by mouth in the evening and take 2 tablets by mouth at bedtime esomeprazole (NEXIUM) Take 40 mg by 0 07/25/2016 Active 40 MG capsule mouth daily. docusate sodium Take 100 mg by 0 Active (COLACE) 100 MG mouth Two Times capsule Daily. diphenhydrAMINE Take 25-50 mg by 0 Active (BENADRYL) 25 mg mouth nightly as capsule needed for Sleep. ascorbic acid Take 500 mg by 0 Active (VITAMIN C) 500 MG mouth every tablet morning. Calcium Take 1 tablet by 0 Active Carb-Cholecalciferol mouth daily. (CALCIUM-VITAMIN D3) 600-400 MG-UNIT TABS CRANBERRY PO Take 8,400 mg by 0 Active mouth daily. Multiple Take 1 tablet by 0 Active Vitamins-Iron mouth daily. (MULTIVITAMIN/IRON PO) tizanidine (ZANAFLEX) Take 10.5 mg by 0 Active 4 MG tablet mouth nightly. acetaminophen Take 325-650 mg by 0 Active (TYLENOL) 325 MG mouth daily as tablet needed. ibuprofen Take 400 mg by 0 Active (ADVIL,MOTRIN) 200 MG mouth daily as tablet needed. Sennosides (SENNA) Take 2 tablets by 120 each 0 09/29/2016 Active 8.6 MG TABS tablet mouth nightly as needed. ROZEREM 8 MG tablet Take 8 mg by mouth 2 09/02/2018 Active Daily tamsulosin HCl take 1 capsule by 30 capsule 11 10/29/2018 Active (FLOMAX) 0.4 MG mouth every CAPSIndications: evening Incomplete emptying of bladder lidocaine 2 % UR Use prior to 20 mL 5 08/26/2019 Active urojet catheter 0 instillation Hospital, Clinic, or Other Ordered Dose Route Frequency Start Date End Date Status Facility Administered Medication baclofen (GABLOFEN) 27017 33875 mcg IT Once 10/21/2019 10/21/2019 Ended MCG/20ML intrathecal injection 40,000 mcgIndications: CP (cerebral palsy), spastic, quadriplegic documented as of this encounter (statuses as of 10/21/2019) Active Problems Problem Noted Date Postoperative urinary retention 09/28/2016 Muscle spasticity 09/21/2016 GERD (gastroesophageal reflux disease) 09/15/2016 History of staph infection 08/23/2016 CP (cerebral palsy), spastic, quadriplegic 12/25/2012 Back pain 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 documented as of this encounter Last Filed Vital Signs Vital Sign Reading Time Taken Comments Blood Pressure - - Pulse - - Temperature - - Respiratory Rate - - Oxygen Saturation - - Inhaled Oxygen - - Concentration Weight 53.5 kg (118 lb) 10/21/2019 11:25 AM of note, weighted EST based on estimated WC weight of 350 lb Height - - Body Mass Index 16 09/24/2018 11:24 AM EST documented in this encounter Patient Instructions Patient InstructionsHerAce MD - 10/21/2019 11:00 AM ESTREMEMBER: Baclofen overdose *Most likely to occur with a change in your intrathecal baclofen dose or with a pump refill. *Symptoms are sleepiness, weakness; can progress to difficulty breathing, coma Baclofen withdrawal (underdose) *Can occur at any time * ITB= I (itchy without a rash), T (twitchy, more spasms or tone) B (bitchy, you may feel miserable) * You should keep a supply of oral baclofen (make sure it is not ) at home. If you suspect withdrawal, please take ONE tablet and call us IMMEDIATELY at [phone]. For after hours, follow directions to reach our on -call service Both of these scenarios are unlikely, but are considered medical emergencies and require immediate attention. We will see you prior to your next alarm date of 02/07/20. As always, if you have any questions, please call us at [phone]. 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 Collin presents with his father and godmother. Patient's father and godmother state tone/spasms have been stable. They wish to continue current ITB dose. Patient received Botox injections by Dr. Maldonado on 09/15/19 to the b/l hip adductors, left medial hamstring, bilateral biceps, bilateral FCR. Medications: Current Outpatient Medications: acetaminophen (TYLENOL) 325 MG tablet, Take 325-650 mg by mouth daily as needed., Disp: , Rfl: ascorbic acid (VITAMIN C) 500 MG tablet, Take 500 mg by mouth every morning., Disp: , Rfl: Calcium Carb-Cholecalciferol (CALCIUM-VITAMIN D3) 600-400 MG-UNIT TABS, Take 1 tablet by mouth daily., Disp: , Rfl: CRANBERRY PO, Take 8,400 mg by mouth daily., Disp: , Rfl: diphenhydrAMINE (BENADRYL) 25 mg capsule, Take 25-50 mg by mouth nightly as needed for Sleep., Disp: , Rfl: docusate sodium (COLACE) 100 MG capsule, Take 100 mg by mouth Two Times Daily., Disp: , Rfl: esomeprazole (NEXIUM) 40 MG capsule, Take 40 mg by mouth daily., Disp: , Rfl: ibuprofen (ADVIL,MOTRIN) 200 MG tablet, Take 400 mg by mouth daily as needed., Disp: , Rfl: lidocaine (LIDODERM) 5 %, Place 1 patch onto the skin daily as needed., Disp: , Rfl: lidocaine 2 % UR urojet, Use prior to catheter instillation, Disp: 20 mL , Rfl: 5 Multiple Vitamins-Iron (MULTIVITAMIN/IRON PO), Take 1 tablet by mouth daily., Disp: , Rfl: QUEtiapine (SEROQUEL) 25 MG tablet, Three times daily. Take 1 tablet by mouth in the morning, take 1 tablet by mouth in the evening and take 2 tablets by mouth at bedtime, Disp: , Rfl: ROZEREM 8 MG tablet, Take 8 mg by mouth Daily, Disp: , Rfl: 2 Sennosides (SENNA) 8.6 MG TABS tablet, Take 2 tablets by mouth nightly as needed., Disp: 120each, Rfl: 0 tamsulosin HCl (FLOMAX) 0.4 MG CAPS, take 1 capsule by mouth every evening, Disp: 30 capsule, Rfl: 11 tizanidine (ZANAFLEX) 4 MG tablet, Take 10.5 mg by mouth nightly., Disp : , Rfl: Vitamins A & D (VITAMIN A & D PO), Take 1 tablet by mouth daily. , Disp: , Rfl: Allergies: Allergies Allergen Reactions Atropine Anaphylaxis Redness with eye drops Verified from [facility] 04-29-15 Codeine Anaphylaxis and Rash Dad states makes pt "hyper" Verified from [facility] 04-29-15 Midazolam Hcl Anaphylaxis Pt went into respiratory distress during test Verified from [facility] 04-29-15 Omeprazole Anaphylaxis Verified from [place] [id number] Scopolamine Redness in eyes Sulfa Antibiotics Hives Verified from [facility] 04-29-15 Tape [Adhesive Tape] Rash ROS: Denies pruritis, increased tone, irritability Exam: Weight of 118lb (with estimated WC weight of 350lb as per patient's family). Abdomen: Soft, nontender. Pump is palpable on left side without induration, swelling. Skin intact over pump and no erythema. : su with yellow urine with some sediment Neuro: Alert. Tone with flexor upper limb pattern. Procedure: The pump was electronically interrogated. Logs read: no events since last refill. The programmed reservoir volume was 6.1 mL. Baclofen concentration is 1000 mcg/mL with dose of 346.5 mcg/day via continuous mode. The pump was electronically reprogrammed with new volume of 40 mL. Current dose and concentration remained the same. New reservoir alarm date is 02/07/20. The skin overlying the pump was prepped with chlorhexidine and draped in the usual manner. The refill port was identified with the template and cannulated using a non-coring 22 gauge needle. Residual volume of 11 mL was removed from the pump. The pump was filled with 40 mL of sterile preservative-free intrathecal baclofen (Lot # [id number], Exp. 06/2021). The needle was removed and bandage applied. IMPRESSION: 1. CP (cerebral palsy), spastic, quadriplegic Physical Therapy baclofen (GABLOFEN) 16822 MCG/20ML intrathecal injection 40,000 mcg FL Gablofen, 1000 mcg/mL, Qty 2 ([id number]) FL ELEC ANLYS IMPLT ITHCL/EDRL BUS STEWARD W/REPR&REF PHYS [id number] PLAN: 1. Signs and symptoms of baclofen withdrawal were discussed. The patient and his pather have agreedto contact our office immediately, should they suspect withdrawal. The patient has oral baclofen available if needed. 2. The patient will return one week before the alarm for routine refill. The patient was encouraged to call with any questions or concerns. 3. Possible weight decrease based on weighing patient with new WC. Of note, new WC not weighed here and estimated to be 350lb as per patient's family recollection. Will consider weighing WC next visit if need be. documented in this encounter Plan of Treatment Date Type Specialty Care Team Description 12/15/2019 Procedure visit Ace [facility] MD [facility] [place] [address] 03/22/2020 Procedure visit Ace [facility] MD [address] [place] [address] 05/11/2020 Office Visit Ace [facility] MD [address] [place] [address] [phone] Health Maintenance Due Date Last Done Comments MMR Vaccines (1 of 1 - Standard 1986 series) Varicella Vaccines (1 of 2 - 1986 2-dose childhood series) DTaP,Tdap,and Td Vaccines (1 - 1992 Tdap) HIV Screening 1998 Influenza Vaccine 07/08/2019 Pneumococcal Vaccine: 65+ Years (1 2050 of 2 - PCV13) HIB Vaccines Aged Out No longer eligible based on patient's age to complete this topic Hepatitis A Vaccines Aged Out No longer eligible based on patient's age to complete this topic Hepatitis B Vaccines Aged Out No longer eligible based on patient's age to complete this topic IPV Vaccines Aged Out No longer eligible based on patient's age to complete this topic Pneumococcal Vaccine: Pediatrics Aged Out No longer eligible based on (0 to 5 Years) and At-Risk patient's age to complete this Patients (6 to 64 Years) topic documented as of this encounter Implants Implanted Type Area Director Of Diagnostic Imaging Device Shelf Expiration Model / Identifier Date Serial / Lot Pump Drug Synchromed Ii 40mlmedt Neuro - [id number] [employer] [id number] / Implanted: Qty: 1 on 09/21/2016 by Ghazala Bentley MD at [facility] [id number] / Cath Intrathecal Ascenda 86cm - [id number] [employer] 02/13/2018 [id number] / Implanted: Qty: 1 on 09/21/2016 by Ghazala Bentley MD at [facility] / [id number] documented as of this encounter Results Not on filedocumented in this encounter Visit Diagnoses Diagnosis CP (cerebral palsy), spastic, quadriplegic - Primary Congenital quadriplegia documented in this encounter Administered Medications Medication Order MAR Action Action Date Dose Rate Site baclofen (GABLOFEN) Given 10/21/2019 11:23 AM EST 40,000 mcg MCG/20ML intrathecal injection 40,000 mcg 40,000 mcg, Intrathecal, Once, 10/21/19 at 1130, For 1 dose documented in this encounter
--- OUTSIDE RECORDS SUMMARY | 2019-10-23 12:48 | XMS REPORT ---
:1985 Author Organization [facility] Care Team Providers Name Role [...] d 12-03 15:30:00 (Mustapha) 08:45: Denney 00 [id number] Elimination catheter Eliminatio Resolve 2018-12-06 Elmer present n d 11-04 15:55:00 Eliu 16:00: [id number] 00 Elimination bowel Eliminatio Resolve 2018-12-26 Elmer incontinenc n d 11-04 08:55:00 Eliu bautista 16:00: [id number] 00 Sensory impaired Sensory Resolve 2019-01-30 Elmer verbal d 12-06 15:30:00 Eliu communicati 15:55: [id number] on 00 Integument skin Integument Resolve 2019-01-30 Elmer integrity d 12-06 15:30:00 Eliu risk 15:55: [id number] 00 Neuro impaired Neuro/Emot Resolve 2019-01-30 Elmer decision-ma ion d 12-06 15:30:00 Eliu wilson 15:55: [id number] 00 Activity ADL Activity Resolve 2019-01-30 Elmer assistance d 12-06 15:30:00 Eliu phillips 15:55: [id number] 00 Activity patient Activity Resolve 2019-01-30 Elmer bedbound d 12-06 15:30:00 Eliu 15:55: [id number] 00 Activity self-care Activity Resolve 2019-01-30 Elmer deficit d 12-06 15:30:00 Eliu 15:55: [id number] 00 Safety fall risk Safety Resolve 2018-12-06 Elmer factor d 12-06 15:55:00 Nowak present 15:55: [id number] 00 Safety risk for Safety Resolve 2018-12-06 Elmer hospitaliza d 12-06 15:55:00 Nowak tion 15:55: [id number] 00 Medication injectable Meds Resolve 2019-03-28 Elmer med d 12-06 15:00:00 Nowak assistance 15:55: [id number] required 00 Musculoskel transfer Musculoske Resolve 2019-01-30 Elmer etal assistance letal d 12-06 15:30:00 Nowak required 15:55: [id number] 00 Musculoskel requires Musculoske Resolve 2019-01-30 Elmer etal human letal d 12-06 15:30:00 Nowak assist to 15:55: [id number] leave home 00 Musculoskel requires Musculoske Resolve 2019-01-30 Elmer etal special letal d 12-06 15:30:00 Eliu transportat 15:55: [id number] ion 00 Safety can be left Safety Resolve 2019-03-28 Elmer alone for d 12-09 15:00:00 Eliu tirado short 15:00: [id number] periods 00 Elimination catheter Eliminatio Resolve 2019-01-30 Elmer present n d 12-26 15:30:00 Eliu 08:55: [id number] 00 Elimination bowel Eliminatio Resolve 2019-01-30 Elmer incontinenc n d 01-30 15:30:00 Eliu bautista 15:30: [id number] 00 Safety fall risk Safety Resolve 2019-03-28 Elmer factor d 01-30 15:00:00 Nowak present 15:30: [id number] 00 Safety risk for Safety Resolve 2019-03-28 Elmer hospitaliza d 01-30 15:00:00 Nowak tion 15:30: [id number] 00 Elimination bowel Eliminatio Resolve 2019-03-28 Elmer incontinenc n d 5- 15:00:00 Nowak e 16:00: [id number] 00 Safety cannot be Safety Resolve 2019-03-28 Elmer left alone d 5- 15:00:00 Nowak 16:00: [id number] 00 Integument skin Integument Resolve 2019-03-28 Elmer integrity d 6- 15:00:00 Nowak risk 15:00: [id number] 00 Elimination catheter Eliminatio Resolve 2019-03-28 Elmer present n d 6- 15:00:00 Eliu 15:00: [id number] 00 Neuro impaired Neuro/Emot Resolve 2019-03-28 Elmer decision-ma ion d 03-28 15:00:00 Eliu wilson 15:00: [id number] 00 Activity ADL Activity Resolve 2019-03-28 Elmer assistance d 6- 15:00:00 Nowak required 15:00: [id number] 00 Activity self-care Activity Resolve 2019-03-28 Elmer deficit d 6- 15:00:00 Eliu 15:00: [id number] 00 Musculoskel transfer Musculoske Resolve 2019-03-28 Elmer etal assistance letal d 03-28 15:00:00 Nowak required 15:00: [id number] 00 Musculoskel requires Musculoske Resolve 2019-03-28 Elmer etal human letal d 03-28 15:00:00 Nowak assist to 15:00: [id number] leave home 00 Safety cannot be Safety Resolve 2019-06-06 Elmer left alone d 04-04 16:00:00 Eliu 15:55: [id number] 00 Elimination catheter Eliminatio Active Elmer present n 7- Eliu 16:00: [id number] 00 Elimination bowel Eliminatio Active Elmer incontinenc n - Nowak e 16:00: [id number] 00 Integument skin Integument Active Elmer integrity 06-06 Nowak risk 16:00: [id number] 00 Neuro impaired Neuro/Emot Active 2019-0 Elmer decision-ma ion 8-30 Nowak katie 16:00: [id number] 00 Activity ADL Activity Active Elmer assistance 8-30 Nowak required 16:00: [id number] 00 Activity self-care Activity Active Elmer deficit 8-30 Nowak 16:00: [id number] 00 Safety fall risk Safety Active Elmer factor 8-30 Nowak present 16:00: [id number] 00 Musculoskel transfer Musculoske Active Elmer etal assistance letal 8-30 Nowak required 16:00: [id number] 00 Musculoskel requires Musculoske Active Elmer etal human letal 8-30 Nowak assist to 16:00: [id number] leave home 00 Musculoskel requires Musculoske Active Elmer etal special letal 8-30 Nowak transportat 16:00: [id number] ion 00 Safety cannot be Safety Active 2018-10 Evelyn left alone 0-04 Carrier RN 16:55: 00 Medication oral med Meds Resolve 2018-102019-09-05 Evelyn assistance d 0-21 10:05:00 Carrier RN required 16:45: 00 Medication oral med Meds Active 2018-10 Evelyn assistance 2-26 Carrier RN required 09:55: 00 Allergies, Adverse [...] (SIG) Name Name metoprolol metoprolol 2017-10 No Makhuli Unknown Unknown succinate succinate 12-03 Sawyer CHAUDHARY ER 25 mg ER 25 mg tablet,exte tablet,exte nded nded release 24 release 24 hr hr ascorbic ascorbic 2017-10 No Makhuli Unknown Unknown acid acid 12-03 Sawyer CHAUDHARY (vitamin C) (vitamin C) 500 mg 500 mg capsule capsule Calcium 600 Calcium 600 2017-10 No Makhuli Unknown Unknown with with 12-03 Sawyer CHAUDHARY [...] CHAUDHARY capsule capsule sennosides sennosides 2017-10 No Rejihuli Unknown Unknown 8.6 8.6 12-03 Sawyer CHAUDHARY [...] CHAUDHARY patch patch multivitami multivitami 2017-10 No Renettali Unknown Unknown n capsule n capsule 12-03 [...] Unknown mg tablet mg tablet 12-06 Michel CHAUDHARYcellderek 2018-10 Yes Renettali Unknown Unknown [facility] medical [facility] 11-[address] [facility] supply misc Vital Signs Vital Name Observation [...]
--- OUTSIDE RECORDS SUMMARY | 2019-10-23 12:48 | XMS REPORT ---
:1985 Author Organization [facility] Care Team Providers Name Role Phone Unavailable [...] d 12-03 15:30:00 (Mustapha) 08:45: Denney 00 [id number] Elimination catheter Eliminatio Resolve 2018-12-06 Elmer present n d 11-04 15:55:00 Eliu 16:00: [id number] 00 Elimination bowel Eliminatio Resolve 2018-12-26 Elmer incontinenc n d 11-04 08:55:00 Eliu bautista 16:00: [id number] 00 Sensory impaired Sensory Resolve 2019-01-30 Elmer verbal d 12-06 15:30:00 Eliu communicati 15:55: [id number] on 00 Integument skin Integument Resolve 2019-01-30 Elmer integrity d 12-06 15:30:00 Eliu risk 15:55: [id number] 00 Neuro impaired Neuro/Emot Resolve 2019-01-30 Elmer decision-ma ion d 12-06 15:30:00 Eliu katie 15:55: [id number] 00 Activity ADL Activity Resolve 2019-01-30 Elmer assistance d 12-06 15:30:00 Nowak required 15:55: [id number] 00 Activity patient Activity Resolve 2019-01-30 Elmer bedbound d 12-06 15:30:00 Eliu 15:55: [id number] 00 Activity self-care Activity Resolve 2019-01-30 Elmer deficit d 12-06 15:30:00 Nowak 15:55: [id number] 00 Safety fall risk Safety Resolve 2018-12-06 Elmer factor d 12-06 15:55:00 Eliu present 15:55: [id number] 00 Safety risk for Safety Resolve 2018-12-06 Elmer hospitaliza d 12-06 15:55:00 Eliu tion 15:55: [id number] 00 Medication injectable Meds Resolve 2019-03-28 Elmer med d 12-06 15:00:00 Nowak assistance 15:55: [id number] required 00 Musculoskel transfer Musculoske Resolve 2019-01-30 Elmer etal assistance letal d 12-06 15:30:00 Nowak required 15:55: [id number] 00 Musculoskel requires Musculoske Resolve 2019-01-30 Elmer etal human letal d 12-06 15:30:00 Nowak assist to 15:55: [id number] leave home 00 Musculoskel requires Musculoske Resolve 2019-01-30 Elmer etal special letal d 12-06 15:30:00 Eliu transportat 15:55: [id number] ion 00 Safety can be left Safety Resolve 2019-03-28 Elmer alone for d 12-09 15:00:00 Eliu tirado short 15:00: [id number] periods 00 Elimination catheter Eliminatio Resolve 2019-01-30 Elmer present n d 12-26 15:30:00 Eliu 08:55: [id number] 00 Elimination bowel Eliminatio Resolve 2019-01-30 Elmer incontinenc n d 01-30 15:30:00 Eliu bautista 15:30: [id number] 00 Safety fall risk Safety Resolve 2019-03-28 Elmer factor d - 15:00:00 Nowak present 15:30: [id number] 00 Safety risk for Safety Resolve 2019-03-28 Elmer hospitaliza d 4 15:00:00 Nowak tion 15:30: [id number] 00 Elimination bowel Eliminatio Resolve 2019-03-28 Elmer incontinenc n d 03-07 15:00:00 Eliu e 16:00: [id number] 00 Safety cannot be Safety Resolve 2019-03-28 Elmer left alone d 5 15:00:00 Nowak 16:00: [id number] 00 Integument skin Integument Resolve 2019-03-28 Elmer integrity d 6 15:00:00 Nowak risk 15:00: [id number] 00 Elimination catheter Eliminatio Resolve 2019-03-28 Elmer present n d 6- 15:00:00 Eliu 15:00: [id number] 00 Neuro impaired Neuro/Emot Resolve 2019-03-28 Elmer decision-ma ion d 03-28 15:00:00 Eliu wilson 15:00: [id number] 00 Activity ADL Activity Resolve 2019-03-28 Elmer assistance d 6- 15:00:00 Nowak required 15:00: [id number] 00 Activity self-care Activity Resolve 2019-03-28 Elmer deficit d 6- 15:00:00 Eliu 15:00: [id number] 00 Musculoskel transfer Musculoske Resolve 2019-03-28 Elmer etal assistance letal d 03-28 15:00:00 Nowak required 15:00: [id number] 00 Musculoskel requires Musculoske Resolve 2019-03-28 Elmer etal human letal d 6 15:00:00 Nowak assist to 15:00: [id number] leave home 00 Safety cannot be Safety Resolve 2019-06-06 Elmer left alone d 6 16:00:00 Eliu 15:55: [id number] 00 Elimination catheter Eliminatio Active Elmer present n 7- Eliu 16:00: [id number] 00 Elimination bowel Eliminatio Active Elmer incontinenc n 7- Nowak e 16:00: [id number] 00 Integument skin Integument Active Elmer integrity 8-30 Nowak risk 16:00: [id number] 00 Neuro impaired Neuro/Emot Active Elmer decision-ma ion 8-30 Eliu katie 16:00: [id number] 00 Activity ADL Activity Active Elmer assistance 830 Nowak required 16:00: [id number] 00 Activity self-care Activity Active Elmer deficit 8-30 Nowak 16:00: [id number] 00 Safety fall risk Safety Active Elmer factor 8-30 Nowak present 16:00: [id number] 00 Musculoskel transfer Musculoske Resolve 2019-10-02 Elmer etal assistance letal d 06-06 09:55:00 Nowak required 16:00: [id number] 00 Musculoskel requires Musculoske Resolve 2019-10-02 Elmer etal human letal d 06-06 09:55:00 Nowak assist to 16:00: [id number] leave home 00 Musculoskel requires Musculoske Resolve 2019-10-02 Elmer etal special letal d 06-06 09:55:00 Nowak transportat 16:00: [id number] ion 00 Safety cannot be Safety Resolve [...]
--- OUTSIDE RECORDS SUMMARY | 2019-10-23 12:49 | XMS REPORT ---
:1985 Author Organization [facility] Care Team Providers Name Role [...] d 12-03 15:30:00 (Mustapha) 08:45: Denney 00 [id number] Elimination catheter Eliminatio Resolve 2018-12-06 Elmer present n d 11-04 15:55:00 Eliu 16:00: [id number] 00 Elimination bowel Eliminatio Resolve 2018-12-26 Elmer incontinenc n d 11-04 08:55:00 Eliu bautista 16:00: [id number] 00 Sensory impaired Sensory Resolve 2019-01-30 Elmer verbal d 12-06 15:30:00 Eliu communicati 15:55: [id number] on 00 Integument skin Integument Resolve 2019-01-30 Elmer integrity d 12-06 15:30:00 Eliu risk 15:55: [id number] 00 Neuro impaired Neuro/Emot Resolve 2019-01-30 Elmer decision-ma ion d 12-06 15:30:00 Eliu wilson 15:55: [id number] 00 Activity ADL Activity Resolve 2019-01-30 Elmer assistance d 12-06 15:30:00 Eliu phillips 15:55: [id number] 00 Activity patient Activity Resolve 2019-01-30 Elmer bedbound d 12-06 15:30:00 Eliu 15:55: [id number] 00 Activity self-care Activity Resolve 2019-01-30 Elmer deficit d 12-06 15:30:00 Eliu 15:55: [id number] 00 Safety fall risk Safety Resolve 2018-12-06 Elmer factor d 12-06 15:55:00 Nowak present 15:55: [id number] 00 Safety risk for Safety Resolve 2018-12-06 Elmer hospitaliza d 12-06 15:55:00 Nowak tion 15:55: [id number] 00 Medication injectable Meds Resolve 2019-03-28 Elmer med d 12-06 15:00:00 Nowak assistance 15:55: [id number] required 00 Musculoskel transfer Musculoske Resolve 2019-01-30 Elmer etal assistance letal d 12-06 15:30:00 Nowak required 15:55: [id number] 00 Musculoskel requires Musculoske Resolve 2019-01-30 Elmer etal human letal d 12-06 15:30:00 Nowak assist to 15:55: [id number] leave home 00 Musculoskel requires Musculoske Resolve 2019-01-30 Elmer etal special letal d 12-06 15:30:00 Eliu transportat 15:55: [id number] ion 00 Safety can be left Safety Resolve 2019-03-28 Elmer alone for d 12-09 15:00:00 Eliu tirado short 15:00: [id number] periods 00 Elimination catheter Eliminatio Resolve 2019-01-30 Elmer present n d 12-26 15:30:00 Eliu 08:55: [id number] 00 Elimination bowel Eliminatio Resolve 2019-01-30 Elmer incontinenc n d 01-30 15:30:00 Eliu bautista 15:30: [id number] 00 Safety fall risk Safety Resolve 2019-03-28 Elmer factor d 01-30 15:00:00 Nowak present 15:30: [id number] 00 Safety risk for Safety Resolve 2019-03-28 Elmer hospitaliza d 01-30 15:00:00 Nowak tion 15:30: [id number] 00 Elimination bowel Eliminatio Resolve 2019-03-28 Elmer incontinenc n d 5- 15:00:00 Nowak e 16:00: [id number] 00 Safety cannot be Safety Resolve 2019-03-28 Elmer left alone d 5- 15:00:00 Nowak 16:00: [id number] 00 Integument skin Integument Resolve 2019-03-28 Elmer integrity d 6- 15:00:00 Nowak risk 15:00: [id number] 00 Elimination catheter Eliminatio Resolve 2019-03-28 Elmer present n d 6- 15:00:00 Eliu 15:00: [id number] 00 Neuro impaired Neuro/Emot Resolve 2019-03-28 Elmer decision-ma ion d 03-28 15:00:00 Eliu wilson 15:00: [id number] 00 Activity ADL Activity Resolve 2019-03-28 Elmer assistance d 6- 15:00:00 Nowak required 15:00: [id number] 00 Activity self-care Activity Resolve 2019-03-28 Elmer deficit d 6- 15:00:00 Eliu 15:00: [id number] 00 Musculoskel transfer Musculoske Resolve 2019-03-28 Elmer etal assistance letal d 03-28 15:00:00 Nowak required 15:00: [id number] 00 Musculoskel requires Musculoske Resolve 2019-03-28 Elmer etal human letal d 03-28 15:00:00 Nowak assist to 15:00: [id number] leave home 00 Safety cannot be Safety Resolve 2019-06-06 Elmer left alone d 04-04 16:00:00 Eliu 15:55: [id number] 00 Elimination catheter Eliminatio Active Elmer present n 7- Eliu 16:00: [id number] 00 Elimination bowel Eliminatio Active Elmer incontinenc n - Nowak e 16:00: [id number] 00 Integument skin Integument Active Elmer integrity 06-06 Nowak risk 16:00: [id number] 00 Neuro impaired Neuro/Emot Active 2019-0 Elmer decision-ma ion 8-30 Nowak katie 16:00: [id number] 00 Activity ADL Activity Active Elmer assistance 8-30 Nowak required 16:00: [id number] 00 Activity self-care Activity Active Elmer deficit 8-30 Nowak 16:00: [id number] 00 Safety fall risk Safety Active Elmer factor 8-30 Nowak present 16:00: [id number] 00 Musculoskel transfer Musculoske Active Elmer etal assistance letal 8-30 Nowak required 16:00: [id number] 00 Musculoskel requires Musculoske Active Elmer etal human letal 8-30 Nowak assist to 16:00: [id number] leave home 00 Musculoskel requires Musculoske Active Elmer etal special letal 8-30 Nowak transportat 16:00: [id number] ion 00 Safety cannot be Safety Active [...] Observation Time Observation Value Comments SYSTOLIC mm[Hg] 2019-09-08 18:09:09 120 mm[Hg] mm[Hg] Method: Sit SYSTOLIC mm[Hg] 2018-10-04 18:03:30 138 mm[Hg] mm[Hg] Method: Stand SYSTOLIC mm[Hg] 2019-07-27 18:08:26 128 mm[Hg] mm[Hg] Method: Lie DIASTOLIC mm[Hg] 2019-09-08 18:09:09 68 mm[Hg] mm[Hg] Method: Sit DIASTOLIC mm[Hg] 2018-10-04 18:03:30 76 mm[Hg] mm[Hg] Method: Stand DIASTOLIC mm[Hg] 2019-07-27 18:08:26 72 mm[Hg] mm[Hg] Method: Lie PULSE 2019-09-08 18:09:09 88 /min /min RESP RATE 2019-09-08 18:09:09 16 /min /min TEMP 2019-09-08 18:09:09 97.8 [degF] Procedures This patient has no known procedures. Results This patient has no known results.
--- OUTSIDE RECORDS SUMMARY | 2019-10-23 12:49 | XMS REPORT | Summary of Care ---
:1985 Author Organization [facility] Address [address] [place] [address] Care Team Providers Name Role Phone Michel Interiano MD Primary Care Provider Encounter Details Date Type Department Care Team Description 09/15/2019 Hospital Encounter [facility] Outpatient Therapy @ [address] [phone] Allergies Active Allergy Reactions Severity Noted Date Comments Atropine Anaphylaxis High 12/05/2012 Redness with eye drops Verified from [facility] 04-29-15 Codeine Anaphylaxis, Rash High 12/05/2012 Dad states makes pt "hyper" Verified from [place] [address] Midazolam Hcl Anaphylaxis High 12/05/2012 Pt went into respiratory distress during test Verified from [place] [address] Omeprazole Anaphylaxis High 09/28/2016 Verified from [place] [address] Scopolamine 12/05/2012 Redness in eyes Sulfa Antibiotics Hives Low Verified from [place] [address] Adhesive Tape Rash Low 12/05/2012 documented as of this encounter (statuses as of 10/08/2019) Medications Medication Sig Dispensed Refills Start Date [...] 5 08/26/2019 Active urojet catheter 0 instillation documented as of this encounter (statuses as of 10/08/2019) Active Problems Problem Noted Date Postoperative urinary retention 09/28/2016 Muscle spasticity 09/21/2016 GERD (gastroesophageal reflux disease) 09/15/2016 History of staph infection 08/23/2016 CP (cerebral palsy), spastic, quadriplegic 12/25/2012 Back pain 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 documented as of this encounter Last Filed Vital Signs Not on filedocumented in this encounter Progress Notes Gloria Norman, PT - 09/15/2019 1:45 PM ESTPhysical Therapy Pre Botulium Toxin Injection Treatment Note Referring Clinician: Ace Maldnoado MD Medical Diagnosis: Quadriplegic cerebral palsy Procedure Date: 09/15/19 Muscles Injected: Per adductors, L hamstrings, Per pectoralis, biceps, wrist flexors Goal Review Visit Number: 1 SUBJECTIVE Patient Report: Skin remains intact. Speech is much better in clarity and length of utterance, has no rub areas on skin over pump. Pain Medication Today: no. Pain: Patient has no complaints of pain currently. Interval Medical History: healthy Allergies/reactions: none Medications: no recent changes OBJECTIVE Outcome Measures: LLFDI-CAT 88% disability Strength: No change observed. Range of Motion: total hip abduction 10, popliteal angle 80, shoulder abduction 45, elbow extension to 30 only, wrist extension -60 Tone/Spasticity: Good-Gwen Dystonia Scale: Upper Extremity: 4 - severe. Lower Extremity: 4 - severe. Quadriplegic. Special Tests: Gross Motor Function Classification System for Cerebral Palsy: Level IV - Self mobility with limitations; children are transported or use power mobility outdoors and in the community Upper Extremity Use: Drives chair with R UE, hunter stick is centered on new chair resulting in improved posture Impression: Increased tone, decreased ROM limiting all ADL's Interventions: Therapeutic Activities: ROM Per U and LE, tone assessment, positioning, electrical stimulation to muscles injected. Education: Mode of education provided: Printed material provided. Explanation. Audience: Patient/family. Education Provided: post botox follow up instructions . Response: Verbalized understanding. 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 Pain: Patient has no complaints of pain currently. Clinical Status Changes: Patient has not experienced significant, unusual or unexpected change in clinical status since their last visit. Goal review: Short Term Goals: 1. Collin will drive power chair for all mobility Status: Spasticity continues to limit U and LE function. Drives well when botox is active PLAN Treatment Frequency, Duration, and Interventions: Restorative Physical Therapy is recommended for 1x/2 months or PRN Treatment is to include: Therapeutic Activity. Intervention considerations/suggestions for future therapy sessions: reassess tone, strength and ADL's Equipment Provided: None issued this visit. Recommended Consults: None currently. Development of Plan of Care: Participants included: pt. There was no change to plan of care today. Visit Number: Today's visit is number 18 Program: Tone Management SESSION: Duration: 45 CHARGES: 63533 - CHARGE - PT THERAPEUTIC ACTIVITIES - 15 MIN 3 Units - TONE MANAGEMENT VISIT 1 Units Total treatment minutes: 45.00 Minutes Electronically Signed by: Gloria Norman PT,PhD, PC, 09/15/2019 2:35:02 PM documented in this encounter Plan of Treatment Date Type Specialty Care Team Description 10/21/2019 Procedure visit Physical Medicine and Ace Linton MD Rehabilitation [address] [address] 12/15/2019 Procedure visit Physical Deborah and Ace Maldonado Rehabilitation MD [address] [place] [address] [phone] 03/22/2020 Procedure visit Physical Deborah and Ace Maldonado Rehabilitation MD [address] [place] [address] [phone] 05/11/2020 Office Visit Physical Ace Millan Rehabilitation MD [address] [place] [address] [phone] Health Maintenance Due Date Last Done Comments [...] of this encounter Implants Implanted Type Area Voice Coach Device Shelf Expiration Model / Identifier Date Serial / Lot Pump Drug Synchromed Ii 40mlmedt Neuro - [id number] [employer] [id number] / Implanted: Qty: 1 on 09/21/2016 by Ghazala Bentley MD at [facility] [id number] / Cath Intrathecal Ascenda 86cm - [id number] [employer] 02/13/2018 [id number] / Implanted: Qty: 1 on 09/21/2016 by Ghazala Bentley MD at [facility] / [id number] documented as of this encounter Results Not on filedocumented in this encounter
--- OUTSIDE RECORDS SUMMARY | 2019-10-23 12:49 | XMS REPORT ---
:1985 Author Organization [facility] Care Team Providers Name Role Phone [...] d 12-03 15:30:00 (Mustapha) 08:45: Denney 00 [id number] Elimination catheter Eliminatio Resolve 2018-12-06 Elmer present n d 11-04 15:55:00 Eliu 16:00: [id number] 00 Elimination bowel Eliminatio Resolve 2018-12-26 Elmer incontinenc n d 11-04 08:55:00 Eliu bautista 16:00: [id number] 00 Sensory impaired Sensory Resolve 2019-01-30 Elmer verbal d 12-06 15:30:00 Eliu communicati 15:55: [id number] on 00 Integument skin Integument Resolve 2019-01-30 Elmer integrity d 12-06 15:30:00 Eliu risk 15:55: [id number] 00 Neuro impaired Neuro/Emot Resolve 2019-01-30 Elmer decision-ma ion d 12-06 15:30:00 Eliu wilson 15:55: [id number] 00 Activity ADL Activity Resolve 2019-01-30 Elmer assistance d 12-06 15:30:00 Eliu phillips 15:55: [id number] 00 Activity patient Activity Resolve 2019-01-30 Elmer bedbound d 12-06 15:30:00 Eliu 15:55: [id number] 00 Activity self-care Activity Resolve 2019-01-30 Elmer deficit d 12-06 15:30:00 Eliu 15:55: [id number] 00 Safety fall risk Safety Resolve 2018-12-06 Elmer factor d 12-06 15:55:00 Nowak present 15:55: [id number] 00 Safety risk for Safety Resolve 2018-12-06 Elmer hospitaliza d 12-06 15:55:00 Nowak tion 15:55: [id number] 00 Medication injectable Meds Resolve 2019-03-28 Elmer med d 12-06 15:00:00 Nowak assistance 15:55: [id number] required 00 Musculoskel transfer Musculoske Resolve 2019-01-30 Elmer etal assistance letal d 12-06 15:30:00 Nowak required 15:55: [id number] 00 Musculoskel requires Musculoske Resolve 2019-01-30 Elmer etal human letal d 12-06 15:30:00 Nowak assist to 15:55: [id number] leave home 00 Musculoskel requires Musculoske Resolve 2019-01-30 Elmer etal special letal d 12-06 15:30:00 Eliu transportat 15:55: [id number] ion 00 Safety can be left Safety Resolve 2019-03-28 Elmer alone for d 12-09 15:00:00 Elui tirado short 15:00: [id number] periods 00 Elimination catheter Eliminatio Resolve 2019-01-30 Elmer present n d 12-26 15:30:00 Eliu 08:55: [id number] 00 Elimination bowel Eliminatio Resolve 2019-01-30 Elmer incontinenc n d 01-30 15:30:00 Eliu bautista 15:30: [id number] 00 Safety fall risk Safety Resolve 2019-03-28 Elmer factor d 01-30 15:00:00 Nowak present 15:30: [id number] 00 Safety risk for Safety Resolve 2019-03-28 Elmer hospitaliza d 01-30 15:00:00 Nowak tion 15:30: [id number] 00 Elimination bowel Eliminatio Resolve 2019-03-28 Elmer incontinenc n d 5- 15:00:00 Nowak e 16:00: [id number] 00 Safety cannot be Safety Resolve 2019-03-28 Elmer left alone d 5- 15:00:00 Nowak 16:00: [id number] 00 Integument skin Integument Resolve 2019-03-28 Elmer integrity d 6- 15:00:00 Nowak risk 15:00: [id number] 00 Elimination catheter Eliminatio Resolve 2019-03-28 Elmer present n d 6- 15:00:00 Eliu 15:00: [id number] 00 Neuro impaired Neuro/Emot Resolve 2019-03-28 Elmer decision-ma ion d 03-28 15:00:00 Eliu wilson 15:00: [id number] 00 Activity ADL Activity Resolve 2019-03-28 Elmer assistance d 6- 15:00:00 Nowak required 15:00: [id number] 00 Activity self-care Activity Resolve 2019-03-28 Elmer deficit d 6- 15:00:00 Eliu 15:00: [id number] 00 Musculoskel transfer Musculoske Resolve 2019-03-28 Elmer etal assistance letal d 03-28 15:00:00 Nowak required 15:00: [id number] 00 Musculoskel requires Musculoske Resolve 2019-03-28 Elmer etal human letal d 03-28 15:00:00 Nowak assist to 15:00: [id number] leave home 00 Safety cannot be Safety Resolve 2019-06-06 Elmer left alone d 04-04 16:00:00 Eliu 15:55: [id number] 00 Elimination catheter Eliminatio Active Elmer present n 7- Eliu 16:00: [id number] 00 Elimination bowel Eliminatio Active Elmer incontinenc n - Nowak e 16:00: [id number] 00 Integument skin Integument Active Elmer integrity 06-06 Nowak risk 16:00: [id number] 00 Neuro impaired Neuro/Emot Active 2019-0 Elmer decision-ma ion 8-30 Nowak katie 16:00: [id number] 00 Activity ADL Activity Active Elmer assistance 8-30 Nowak required 16:00: [id number] 00 Activity self-care Activity Active Elmer deficit 8-30 Nowak 16:00: [id number] 00 Safety fall risk Safety Active Elmer factor 8-30 Nowak present 16:00: [id number] 00 Musculoskel transfer Musculoske Active Elmer etal assistance letal 8-30 Nowak required 16:00: [id number] 00 Musculoskel requires Musculoske Active Elmer etal human letal 8-30 Nowak assist to 16:00: [id number] leave home 00 Musculoskel requires Musculoske Active Elmer etal special letal 8-30 Nowak transportat 16:00: [id number] ion 00 Safety cannot be Safety Active 2018-10 Evleyn left alone 0-04 Carrier RN 16:55: 00 [...] ayed release release ibuprofen ibuprofen 2017-10 No Rentetali Unknown Unknown 200 mg 200 mg 12-03 [...]
--- OUTSIDE RECORDS SUMMARY | 2019-10-23 12:49 | XMS REPORT | Summary of Care ---
:1985 Author Organization [facility] Address [address] [place] [address] Care Team Providers Name Role Phone Michle Interiano MD Primary Care Provider Reason for Referral Physical Therapy (Routine) Status Reason Specialty Diagnoses / Referred By Referred To Contact Procedures Contact Open Physical Medicine Diagnoses CP (cerebral palsy), spastic, quadriplegic Ace Maldonado 02n Rehabilitation and Rehabilitation Procedures Physical Therapy MD [facility] [address] [place], [place] [phone] Email: [email or web address] Reason for Visit Reason Comments Follow-up rehab management Encounter Details Date Type Department Care Team Description 09/15/2019 Procedure visit Physical Medicine and Ace Maldonado CP ( cerebral palsy), Rehabilitation MSG, JAYCOB Caban MD spastic, quadriplegic [address] [facility] [address] [facility] (Primary Dx) [place] [address] [place], [place] [phone] Allergies Active Allergy Reactions Severity Noted Date Comments Atropine Anaphylaxis High 12/05/2012 Redness with eye drops Verified from [facility] 04-29-15 Codeine Anaphylaxis, Rash High 12/05/2012 Dad states makes pt "hyper" Verified from [facility] 04-29-15 Midazolam Hcl Anaphylaxis High 12/05/2012 Pt went into respiratory distress during test Verified from [facility] 04-29-15 Omeprazole Anaphylaxis High 09/28/2016 Verified from [facility] 04-29-15 Scopolamine 12/05/2012 Redness in eyes Sulfa Antibiotics Hives Low Verified from [facility] 04-29-15 Adhesive Tape Rash Low 12/05/2012 documented as of this encounter (statuses as of 09/15/2019) Medications Medication Sig Dispensed Refills Start Date [...] Date End Date Status Facility Administered Medication onabotulinumtoxin type A 400 Units IM Once RT 09/15/2019 09/15/2019 Ended (BOTOX) injection 400 UnitsIndications: CP (cerebral palsy), spastic, quadriplegic sodium chloride 6 mL IM Once 09/15/2019 09/15/2019 Ended (preservative free) 0.9 % flush 6 mLIndications: CP (cerebral palsy), spastic, quadriplegic documented as of this encounter (statuses as of 09/15/2019) Active Problems Problem Noted Date Postoperative urinary retention 09/28/2016 Muscle spasticity 09/21/2016 GERD (gastroesophageal reflux disease) 09/15/2016 History of staph infection 08/23/2016 CP (cerebral palsy), spastic, quadriplegic 12/25/2012 Back pain CP (cerebral palsy) Overview: spastic dystonic ( GMFCS V) documented as of this encounter (statuses as of 09/15/2019) Social History Tobacco Use Types Packs/Day Years [...] Taken Comments Blood Pressure - - Pulse 96 09/15/2019 1:11 PM EST Temperature - - Respiratory Rate - - Oxygen Saturation 99% 09/15/2019 1:11 PM EST Inhaled Oxygen Concentration - - Weight - - Height - - Body Mass Index - - documented in this encounter Patient Instructions Patient InstructionsAce Maldonado MD - 09/15/2019 1:00 PM EST BOTOX FOLLOW UP INSTRUCTIONS You have received Botox injections in the: Muscle Injected Right Hip Adductor Left Medial Hamstring Left Hip Adductor Bilateral Biceps Bilateral Flexor Carpi Radialis Bilateral Flexor Carpi Ulnaris Bilateral pectorals Botox reduces the spasticity of the muscle into which it is injected. The following things are important after you receive these injections: 1. Stretch the muscle which was too tight previously. 2. Strengthen the opposite muscles so they can counteract the strength of the tight muscles. 3. Begin to do these activities when you notice the change in spasticity. Generally this is 3-5 days after the injections. 4. If you notice any changes in swallowing or breathing, seek medical attention and then please letus know. 5. You may return to all typical activities today. Please email Gloria ([email or web address]) with results of your injections in 10 days to 2 weeks. If casting or splinting is planned, it will be scheduled in about 2 weeks. In the meantime, be as activeas possible. Plan to increase therapy for 2-3 months after the Botox injections to maximize the change in the injected and weak muscles. We will see you in 3 months. Please call before your appointment with any questions or concerns. If you have any difficulties you think may be related to Botox, call our office. Our phone number [phone]. documented in this encounter Progress Notes Ace Maldonado MD - 09/15/2019 1:00 PM EST Procedure Note: Botox Injections Physician: Ace Maldonado MD Assisted: Carlos Taveras DO; Gloria Pettit PT, PhD Reason for Procedure: Collin Herndon is a 34 y.o. 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 Increased tightness is interfering with hygeine and care and positioning, despite ITB pump placement. Good response to botox injections in the past, last done more than 3 months ago. Family and patient interested in repeat procedure with goals to decrease tone, increase range and improve care, positioning and hygiene. We reviewed the possible risks and benefit including the possibility of breathing or swallowing difficulties. Consent was signed. "Time Out" verification procedure was performed prior to start. A dilution of 100 units/1mL was used in the upper limbs to limit the risks of diffusion. The area was prepped in the usual fashion. Under stimulation guidance onabotulinumtoxin A was injected as follows after ensuring no bloody return: Muscle Injected Units per injection Total injected per group Right Hip Adductor 25 units x 2 50 Left Hip Adductor 25 units x 4 100 Left Medial Hamstrings 25 units x 2 50 Bilateral Biceps 20 units x 2/side 80 Bilateral Flexor Carpi Radialis 20 units x 1/side 40 Bilateral Flexor Carpi Ulnaris 20 units x 1/side 40 Bilateral pectorals 20 units x 1/side 40 Total units injected = 400; Units Wasted = 0 Lot No: [id number] x4 Vial No: [id number], [id number], [id number], [id number] Tolerated procedure well. Spoke with dad and instructed to call with any questions or concerns. Follow up appointments, instructions and medication insert were provided. documented in this encounter Plan of Treatment Date Type Specialty Care Team Description 10/21/2019 Procedure visit Physical Medicine and Bradley Alejandra FNP Rehabilitation [address] [place], [place] [phone] 12/15/2019 Procedure visit Physical Medicine and Ace Maldonado Rehabilitation MD [address] [place], [place] [phone] 03/22/2020 Procedure visit Physical Deborah and Ace Maldnoado Rehabilitation MD [address] [place], [place] [phone] 05/11/2020 Office Visit Physical Deborah and Ace Maldonado Rehabilitation MD [address] [place], [place] [phone] Health Maintenance Due Date Last Done Comments MMR Vaccines (1 of 1 - Standard 1986 series) Varicella Vaccines (1 of 2 - 1986 2-dose childhood series) DTaP,Tdap,and Td Vaccines ( - 1992 Tdap) HIV Screening 1998 Influenza [...] of this encounter Implants Implanted Type Area Aquaculturist Device Shelf Expiration Model / Identifier Date Serial / Lot Pump Drug Synchromed Ii 40mlmedt Neuro - [id number] [employer] [id number] / Implanted: Qty: 1 on 09/21/2016 by Ghazala Bentley MD at OR [facility] [id number] / Cath Intrathecal Ascenda 86cm - [id number] [employer] 02/13/2018 [id number] / Implanted: Qty: 1 on 09/21/2016 by Ghazala Bentley MD at [facility] / [id number] documented as of this encounter Results Not on filedocumented in this encounter Visit Diagnoses Diagnosis CP (cerebral palsy), spastic, quadriplegic - Primary Congenital quadriplegia documented in this encounter Administered Medications Medication Order MAR Action Action Date Dose Rate Site onabotulinumtoxin type A (BOTOX) Given 09/15/2019 2:34 PM 400 Units injection 400 Units EST 400 Units, Intramuscular, Once RT, Sun09/15/19 at 1315, For 1 dose sodium chloride (preservative free) 0.9 % Given 09/15/2019 2:34 PM EST 6 mLs flush 6 mL 6 mL, Intramuscular, Once, Sun09/15/19 at 1315, For 1 dose documented in this encounter
--- OUTSIDE RECORDS SUMMARY | 2019-10-23 12:49 | XMS REPORT ---
:1985 Author Organization [facility] Care Team Providers Name Role Phone Unavailable [...] d 12-03 15:30:00 (Mustapha) 08:45: Denney 00 [id number] Elimination catheter Eliminatio Resolve 2018-12-06 Elmer present n d 11-04 15:55:00 Eliu 16:00: [id number] 00 Elimination bowel Eliminatio Resolve 2018-12-26 Elmer incontinenc n d 11-04 08:55:00 Eliu bautista 16:00: [id number] 00 Sensory impaired Sensory Resolve 2019-01-30 Elmer verbal d 12-06 15:30:00 Eliu communicati 15:55: [id number] on 00 Integument skin Integument Resolve 2019-01-30 Elmer integrity d 12-06 15:30:00 Eliu risk 15:55: [id number] 00 Neuro impaired Neuro/Emot Resolve 2019-01-30 Elmer decision-ma ion d 12-06 15:30:00 Eliu wilson 15:55: [id number] 00 Activity ADL Activity Resolve 2019-01-30 Elmer assistance d 12-06 15:30:00 Eliu phillips 15:55: [id number] 00 Activity patient Activity Resolve 2019-01-30 Elmer bedbound d 12-06 15:30:00 Eliu 15:55: [id number] 00 Activity self-care Activity Resolve 2019-01-30 Elmer deficit d 12-06 15:30:00 Eliu 15:55: [id number] 00 Safety fall risk Safety Resolve 2018-12-06 Elmer factor d 12-06 15:55:00 Nowak present 15:55: [id number] 00 Safety risk for Safety Resolve 2018-12-06 Elmer hospitaliza d 12-06 15:55:00 Nowak tion 15:55: [id number] 00 Medication injectable Meds Resolve 2019-03-28 Elmer med d 12-06 15:00:00 Nowak assistance 15:55: [id number] required 00 Musculoskel transfer Musculoske Resolve 2019-01-30 Elmer etal assistance letal d 12-06 15:30:00 Nowak required 15:55: [id number] 00 Musculoskel requires Musculoske Resolve 2019-01-30 Elmer etal human letal d 12-06 15:30:00 Nowak assist to 15:55: [id number] leave home 00 Musculoskel requires Musculoske Resolve 2019-01-30 Elmer etal special letal d 12-06 15:30:00 Eliu transportat 15:55: [id number] ion 00 Safety can be left Safety Resolve 2019-03-28 Elmer alone for d 12-09 15:00:00 Eliu tirado short 15:00: [id number] periods 00 Elimination catheter Eliminatio Resolve 2019-01-30 Elmer present n d 12-26 15:30:00 Eliu 08:55: [id number] 00 Elimination bowel Eliminatio Resolve 2019-01-30 Elmer incontinenc n d 01-30 15:30:00 Eliu bautista 15:30: [id number] 00 Safety fall risk Safety Resolve 2019-03-28 Elmer factor d 01-30 15:00:00 Nowak present 15:30: [id number] Safety risk for Safety Resolve 2019-03-28 Elmer hospitaliza d 01-30 15:00:00 Nowak tion 15:30: [id number] 00 Elimination bowel Eliminatio Resolve 2019-03-28 Elmer incontinenc n d 5- 15:00:00 Nowak e 16:00: [id number] 00 Safety cannot be Safety Resolve 2019-03-28 Elmer left alone d 5- 15:00:00 Nowak 16:00: [id number] 00 Integument skin Integument Resolve 2019-03-28 Elmer integrity d 6- 15:00:00 Nowak risk 15:00: [id number] 00 Elimination catheter Eliminatio Resolve 2019-03-28 Elmer present n d 6- 15:00:00 Eliu 15:00: [id number] 00 Neuro impaired Neuro/Emot Resolve 2019-03-28 Elmer decision-ma ion d 03-28 15:00:00 Eliu wilson 15:00: [id number] 00 Activity ADL Activity Resolve 2019-03-28 Elmer assistance d 6- 15:00:00 Nowak required 15:00: [id number] 00 Activity self-care Activity Resolve 2019-03-28 Elmer deficit d 6- 15:00:00 Eliu 15:00: [id number] 00 Musculoskel transfer Musculoske Resolve 2019-03-28 Elmer etal assistance letal d 03-28 15:00:00 Nowak required 15:00: [id number] 00 Musculoskel requires Musculoske Resolve 2019-03-28 Elmer etal human letal d 03-28 15:00:00 Nowak assist to 15:00: [id number] leave home 00 Safety cannot be Safety Resolve 2019-06-06 Elmer left alone d 04-04 16:00:00 Eliu 15:55: [id number] 00 Elimination catheter Eliminatio Active Elmer present n 7- Eliu 16:00: [id number] 00 Elimination bowel Eliminatio Active Elmer incontinenc n - Nowak e 16:00: [id number] 00 Integument skin Integument Active Elmer integrity 06-06 Nowak risk 16:00: [id number] 00 Neuro impaired Neuro/Emot Active 2019-0 Elmer decision-ma ion 8-30 Nowak katie 16:00: [id number] 00 Activity ADL Activity Active Elmer assistance 8-30 Nowak required 16:00: [id number] 00 Activity self-care Activity Active Elmer deficit 8-30 Nowak 16:00: [id number] 00 Safety fall risk Safety Active Elmer factor 8-30 Nowak present 16:00: [id number] 00 Musculoskel transfer Musculoske Active Elmer etal assistance letal 8-30 Nowak required 16:00: [id number] 00 Musculoskel requires Musculoske Active Elmer etal human letal 8-30 Nowak assist to 16:00: [id number] leave home 00 Musculoskel requires Musculoske Active Elmer etal special letal 8-30 Nowak transportat 16:00: [id number] ion 00 Safety cannot be Safety Active [...]
[2019-10-23 14:23] LABS: ABS Monocytes 0.7 10^3/ul (0-0.8); ABS Neutrophils 10.6 10^3/ul (1.5-7.7); Eosinophil % 0.3 %; Hematocrit 38 % (42-52); Hemoglobin 13.2 g/dL (14.0-18.0); Mean Corpuscular HGB Conc 34 g/dL (31-36); Mean Corpuscular Hemoglobin 30 pg (27-31); Mean Corpuscular Volume 86 fL (80-94); Mean Platelet Volume 8.8 fL (7.4-10.4); Platelet Count 297 10^3/uL (150-450); Red Blood Count 4.44 10^6 /uL (4.18-5.48); Red Cell Distribution Width 14 % (10-15); White Blood Count 12.4 10^3/uL (3.5-10.8)
[2019-10-23 14:32] LABS: Activated Partial Thrombo Time 30.3 seconds (26.0-38.0); INR 1.23 (0.82-1.09)
[2019-10-23 14:38] LABS: Albumin 3.8 g/dL (3.2-5.2); Albumin/Globulin Ratio 1.1 (1-3); BUN/Creatinine Ratio 24.5 (8-20); EGFR African American 215.3 (>60); Globulin 3.5 g/dL (2-4); Potassium 3.7 mmol/L (3.5-5.0); Total Bilirubin 0.7 mg/dL (0.2-1.0); Total Protein 7.3 g/dL (6.4-8.9)
[2019-10-23 14:39] LABS: Troponin I 0.01 ng/mL (<0.03)
--- NOTE | 2019-10-23 14:57 | ED ---
GI/ HPI - HPI Summary HPI Summary: The patient is a 34 y/o male presenting to [facility] accompanied by father and godmother with a chief complaint of abdominal pain, nausea, vomiting, and possible UTI since yesterday. His family reports that he began vomiting yesterday and was experiencing abdominal pain with a distended abdomen. His home health aide also had to change his su catheter twice this week due to it clogging up. He endorses dysuria. His godmother notes a mild fever a few days ago as well as a cough. He denies any chills, erythema of eyes, sore throat , chest pain, shortness of breath, hematuria, myalgia, edema, rash, or dizziness. No one else at home is sick. PMHx: HTN, GERD, hiatal hernia, scoliosis, cerebral palsy. Nonsmoker, no EtOH, no substance use. Medications reviewed. Allergies noted. - History of Current Complaint Chief Complaint: EDUrogenitalProblems Time Seen by Provider: 10/23/19 13:33 Stated Complaint: UTI Hx Obtained From: Patient, Family/Coal Grader Onset/Duration: Started Hours Ago - yesterday, Still Present Timing: Constant Severity: Mild Current Severity: Moderate Pain Intensity: 0 Location of Pain: Diffuse Pain Characteristics: Dull Associated Signs and Symptoms: Positive: Nausea, Vomiting, Fever, Dysuria, Abdominal Pain, Cough, UTI Symptoms, Other: - Negative: erythema of eyes, sore throat, mylagia, edema, rash. Negative: Dizziness, Hematuria, Chills, Chest Pain Aggravating Factor(s): Nothing Alleviating Factor(s): Nothing - Allergy/Home Medications Allergies/Adverse Reactions: Allergies Allergy/AdvReac Type Severity Reaction Status Date / Time atropine Allergy Eyes Verified 10/23/19 12:43 Itchy/Swollen/Red/Watery codeine Allergy Anaphylatic Verified 10/23/19 12:43 Shock midazolam [From Versed] Allergy Anaphylatic Verified 10/23/19 12:43 Shock omeprazole [From Prilosec] Allergy Difficulty Verified 10/23/19 12:43 Breathing scopolamine Allergy Eyes Verified 10/23/19 12:43 Itchy/Swollen/Red/Watery Sulfa (Sulfonamide Allergy Hives Verified 10/23/19 12:43 Antibiotics) Home Medications: Home Medications Acetaminophen TAB* [Tylenol TAB*] 650 mg PO Q4H PRN 10/23/19 [History Confirmed 10/23/19] Ascorbic Acid TAB* [Vitamin C TAB*] 500 mg PO DAILY 10/23/19 [History Confirmed 10/23/19] Baclofen INTRATHECAL (NF) [Gablofen (NF)] 40,000 mcg INTRATHEC ONCE 10/23/19 [ History Confirmed 10/23/19] Calcium Carbonate [Calcium] 1,000 mg PO DAILY 10/23/19 [History Confirmed ] Cholecalciferol TAB* [Vitamin D TAB*] 50,000 units PO WEEKLY 10/23/19 [History Confirmed 10/23/19] Docusate CAP* [Colace Cap*] 100 mg PO DAILY 10/23/19 [History Confirmed 10/23/19 ] Metoprolol Succinate XL TAB* [Toprol XL TAB*] 25 mg PO DAILY 10/23/19 [History Confirmed 10/23/19] QUEtiapine TAB* [Seroquel 100 MG *] 25 mg PO .MORNING & AFTERNOON 10/23/19 [ History Confirmed 10/23/19] QUEtiapine TAB* [Seroquel 100 MG *] 50 mg PO BEDTIME 10/23/19 [History Confirmed 10/23/19] Ramelteon (NF) [Rozerem (NF)] 8 mg PO BEDTIME PRN 10/23/19 [History Confirmed ] Sennosides [Senna] 8.6 mg PO QPM 10/23/19 [History Confirmed 10/23/19] Tamsulosin CAP* [Flomax CAP*] 0.4 mg PO BEDTIME 10/23/19 [History Confirmed ] Vitamins A and D [Vitamin A and D] 1 each PO DAILY 10/23/19 [History Confirmed 10/23/19] PMH/Surg Hx/FS Hx/Imm Hx Endocrine/Hematology History: Denies: Hx Anticoagulant Therapy, Hx Diabetes Cardiovascular History: Reports: Hx Hypertension Denies: Hx Pacemaker/ICD Respiratory History: Denies: Hx Asthma GI History: Reports: Hx Gastroesophageal Reflux Disease, Hx Hiatal Hernia Musculoskeletal History: Reports: Hx Scoliosis Sensory History: Reports: Hx Contacts or Glasses Denies: Hx Hearing Aid Opthamlomology History: Reports: Hx Contacts or Glasses Neurological History: Reports: Other Neuro Impairments/Disorders - CP Psychiatric History: Denies: Hx Panic Disorder - Surgical History Surgical History: Yes Surgery Procedure, Year, and Place: ROSETOMY (nerves in back),TENDONS IN LEGS, RODS IN BACK AND HIP, HIATIAL HERNIA TWICE,CEREBRAL PALSEY. Infectious Disease History: Yes Infectious Disease History: Reports: Hx of Known/Suspected MRSA Denies: Traveled Outside the [place] in Last 30 Days - Family History Known Family History: Positive: Cardiac Disease, Hypertension, Other - dementia (mother) - Social History Alcohol Use: None Hx Substance Use: No Substance Use Type: Reports: None Hx Tobacco Use: No Smoking Status (MU): Never Smoked Tobacco Review of Systems Positive: Fever. Negative: Chills Negative: Erythema Negative: Sore Throat Negative: Chest Pain Positive: Cough. Negative: Shortness Of Breath Positive: Abdominal Pain, Vomiting, Nausea Positive: dysuria. Negative: hematuria Negative: Myalgia, Edema Negative: Rash Neurological: Other - Negative: dizziness All Other Systems Reviewed And Are Negative: Yes Physical Exam - Summary Physical Exam Summary: Constitutional: Well-developed, Well-nourished, Alert. Wheel-chair bound. Indwelling su catheter. (-) Distressed Skin: Warm, Dry HENT: Normocephalic; Atraumatic Eyes: Conjunctiva normal Neck: Musculoskeletal ROM normal neck. (-) JVD, (-) Stridor, (-) Tracheal deviation Cardio: Rhythm regular, rate normal, Heart sounds normal; Intact distal pulses; The pedal pulses are 2+ and symmetric. Radial pulses are 2+ and symmetric. (-) Murmur Pulmonary/Chest wall: Effort normal. (-) Respiratory distress, (-) Wheezes, (-) Rales Abd: Soft, (-) tenderness, (-) Distension, (-) Guarding, (-) Rebound Musculoskeletal: (-) Edema Lymph: (-) Cervical adenopathy Neuro: Alert, Oriented x3 Psych: Mood and affect Normal Triage Information Reviewed: Yes Vital Signs On Initial Exam: Initial Vitals Temp Pulse Resp BP Pulse Ox 99.3 F 107 20 136/83 96 10/23/19 12:39 10/23/19 12:39 10/23/19 12:39 10/23/19 12:39 10/23/19 12:39 Vital Signs Reviewed: Yes Procedures - Sedation Patient Received Moderate/Deep Sedation with Procedure: No Diagnostics - Vital Signs Vital Signs Temp Pulse Resp BP Pulse Ox 10/23/19 12:39 99.3 F 107 20 136/83 96 - Laboratory Lab Results: Lab Results 10/23/19 10/23/19 10/23/19 Range/Units 14:04 14:05 14:05 WBC 12.4 H (3.5-10.8) 10^3/uL RBC 4.44 (4.18-5.48) 10^6 /uL Hgb 13.2 L (14.0-18.0) g/dL Hct 38 L (42-52) % MCV 86 (80-94) fL MCH 30 (27-31) pg MCHC 34 (31-36) g/dL RDW 14 (10-15) % Plt Count 297 (150-450) 10^3/uL MPV 8.8 (7.4-10.4) fL Neut % (Auto) 85.4 % Lymph % (Auto) 8.0 % [place] % (Auto) 6.0 % Eos % (Auto) 0.3 % Baso % (Auto) 0.3 % Absolute Neuts (auto) 10.6 H (1.5-7.7) 10^3/ul Absolute Lymphs (auto) 1.0 (1.0-4.8) 10^3/ul Absolute Monos (auto) 0.7 (0-0.8) 10^3/ul Absolute Eos (auto) 0.0 (0-0.6) 10^3/ul Absolute Basos (auto) 0.0 (0-0.2) 10^3/ul Absolute Nucleated RBC 0.0 10^3/ul Nucleated RBC % 0.0 INR (Anticoag Therapy) 1.23 H (0.82-1.09) APTT 30.3 (26.0-38.0) seconds Sodium 134 L (135-145) mmol/L Potassium 3.7 (3.5-5.0) mmol/L Chloride 101 (101-111) mmol/L Carbon Dioxide 24 (22-32) mmol/L Anion Gap 9 (2-11) mmol/L BUN 13 (6-24) mg/dL Creatinine 0.53 L (0.67-1.17) mg/dL Est GFR ( Amer) 215.3 (>60) Est GFR (Non-Af Amer) 178.0 (>60) BUN/Creatinine Ratio 24.5 H (8-20) Glucose 113 H (70-100) mg/dL Lactic Acid (0.5-2.0) mmol/L Calcium 9.0 (8.6-10.3) mg/dL Total Bilirubin 0.70 (0.2-1.0) mg/dL AST 21 (13-39) U/L ALT 15 (7-52) U/L Alkaline Phosphatase 105 H (34-104) U/L Troponin I 0.01 (<0.03) ng/mL Total Protein 7.3 (6.4-8.9) g/dL Albumin 3.8 (3.2-5.2) g/dL Globulin 3.5 (2-4) g/dL Albumin/Globulin Ratio 1.1 (1-3) / Range/Units 14:05 WBC (3.5-10.8) 10^3/uL RBC (4.18-5.48) 10^6 /uL Hgb (14.0-18.0) g/dL Hct (42-52) % MCV (80-94) fL MCH (27-31) pg MCHC (31-36) g/dL RDW (10-15) % Plt Count (150-450) 10^3/uL MPV (7.4-10.4) fL Neut % (Auto) % Lymph % (Auto) % [place] % (Auto) % Eos % (Auto) % Baso % (Auto) % Absolute Neuts (auto) (1.5-7.7) 10^3/ul Absolute Lymphs (auto) (1.0-4.8) 10^3/ul Absolute Monos (auto) (0-0.8) 10^3/ul Absolute Eos (auto) (0-0.6) 10^3/ul Absolute Basos (auto) (0-0.2) 10^3/ul Absolute Nucleated RBC 10^3/ul Nucleated RBC % INR (Anticoag Therapy) (0.82-1.09) APTT (26.0-38.0) seconds Sodium (135-145) mmol/L Potassium (3.5-5.0) mmol/L Chloride (101-111) mmol/L Carbon Dioxide (22-32) mmol/L Anion Gap (2-11) mmol/L BUN (6-24) mg/dL Creatinine (0.67-1.17) mg/dL Est GFR ( Amer) (>60) Est GFR (Non-Af Amer) (>60) BUN/Creatinine Ratio (8-20) Glucose (70-100) mg/dL Lactic Acid 0.5 (0.5-2.0) mmol/L Calcium (8.6-10.3) mg/dL Total Bilirubin (0.2-1.0) mg/dL AST (13-39) U/L ALT (7-52) U/L Alkaline Phosphatase (34-104) U/L Troponin I (<0.03) ng/mL Total Protein (6.4-8.9) g/dL Albumin (3.2-5.2) g/dL Globulin (2-4) g/dL Albumin/Globulin Ratio (1-3) Result Diagrams: 10/23/19 14:04 10/23/19 14:05 Lab Statement: Any lab studies that have been ordered have been reviewed, and results considered in the medical decision making process. - Radiology CXR Radiology Interpretation Completed By: Radiologist Summary of Radiographic Findings: Impression: Right basilar infiltrate with possible right pleural effusion. ED physician has reviewed this report. GIGU Course/Dx - Course Course Of Treatment: Patient is a 34 y/o male who has a history of cerebral palsy presenting with diffuse abdominal pain, nausea, vomiting, cough, dysuria, and fever onset yesterday. Chronic su changed this morning and another time this week secondary to possible UTI. Physical exam reveals paitent who is wheel- chair bound with an indwelling su catheter. Blood work reveals WBCs of 12.4, hemoglobin of 13.2, hematocrit of 38, INR of 1.23, sodium of 134, creatinine of 0.53, glucose of 113, and alkaline phosphatase of 105. UA consistent with infection revealing 3+ protein, 3+ ketones, 1+ blood, positive nitrates, 2+ leukocyte esterase, 3+ WBCs, 3+ RBCs, presence of amorphous crystals, 3+ bacteria, presence of hyaline casts, and ascorbic acid. CXR reveals right basilar infiltrate with possible right pleural effusion. I spoke with Dr. Raymundo from the hospitalist services, who accepts the patient for admission. Patient and his family agree with plan. - Diagnoses Provider Diagnoses: UTI (urinary tract infection), Community acquired pneumonia - Physician Notifications Discussed Care Of Patient With: Viola Raymundo - hospitalist Time Discussed With Above Provider: 15:40 Instructed by Provider To: Other - I discussed the patients case with Dr. Raymundo , who accepts the patient for admission. Discharge ED - Sign-Out/Discharge Documenting (check all that apply): Patient Departure - Patient accepted for admission by Dr. Raymundo. - Discharge Plan Condition: Stable Disposition: ADMITTED TO [facility] - Attestation Statements Document Initiated by Scribe: Yes Documenting Scribe: Denisse Roca Provider For Whom Tyrellibe is Documenting (Include Credential): Dr. Herb Chapa MD Scribe Attestation: Denisse Bender, scribed for Dr. Herb Chapa MD on 10/23/19 at 1751. Status of Scribe Document: Ready
[2019-10-23 14:58] LABS: Urine Appearance Turbid; Urine Bilirubin Negative (Negative); Urine Blood 1+ (Negative); Urine Color Yellow; Urine Glucose Negative (Negative); Urine Ketones 1+ (Negative); Urine Nitrite Positive (Negative); Urine Protein 3+(>=500 mg/dL) (Negative); Urine Specific Gravity 1.019 (1.010-1.030); Urine Urobilinogen Negative (Negative)
[2019-10-23 15:04] LABS: Urine Bacteria 3+ (Absent); Urine Red Blood Cell 3+(>10/hpf) (Absent); Urine White Blood Cell 3+(>20/hpf) (Absent)
[2019-10-23] MEDS ORDERED: Cefepime 2 GM in Dextrose(*) 2 GM/50 ML BAG IV ONE (15:19)
[2019-10-23] MEDS ORDERED: NS 0.9% 1000 ML** 1,000 ML IV.FLUID IV ONE (15:19)
[2019-10-23] MEDS ORDERED: Ciprofloxacin 400MG IVPREMIX(* 400 MG/200 ML BAG IVPB ONE (15:20)
[2019-10-23] MEDS ORDERED: Vancomycin(*) 1,500 MG in NS 0.9% 250 ML* 250 ML IVPB ONE (15:21)
[2019-10-23] MEDS ORDERED: Azithromycin 500 mg/250 ml NS 500 MG/250 ML BAG IVPB ONE (15:28)
[2019-10-23] MEDS ORDERED: cefTRIAXone(*) 2 GM in NS 0.9% 100 ML* 100 ML IVPB ONE (15:28)
[2019-10-23] MEDS ORDERED: Ondansetron INJ* 2 MG/ML VIAL IV PRN (16:57)
[2019-10-23] MEDS ORDERED: Acetaminophen TAB* 325 MG PO PRN ×2 (16:57→16:59)
[2019-10-23] MEDS ORDERED: QUEtiapine TAB* 100 MG PO SCH ×2 (17:00→21:00)
[2019-10-23] MEDS ORDERED: BACLOFEN INTRATHEC SCH (17:00)
[2019-10-23] MEDS ORDERED: QUEtiapine TAB* 25 MG PO SCH (17:48)
--- NOTE | 2019-10-23 19:33 | HP ---
CC: Dr. Interiano * HISTORY AND PHYSICAL: DATE OF ADMISSION: 10/23/19 PRIMARY CARE PROVIDER: Dr. Interiano. CHIEF COMPLAINT: Nausea and vomiting. HISTORY OF PRESENT ILLNESS: Collin Herndon is a 34-year-old male with a history of cerebral palsy with chronically indwelling Luke catheter in place, who had troubles with catheter getting clogged up in the past 3 to 4 days. Catheter was changed approximately 4 days ago and clogged up again, was changed today. Today, the patient also started having nausea and vomiting. He denied abdominal pain. Here, his urinalysis showed it to be markedly abnormal. There is also question of pneumonia on the chest x-ray, although the patient has no symptoms of cough or shortness of breath. It is possible that he could have aspirated when he was vomiting but once again no respiratory symptoms were reported. He is today seen with his father Pratik Herndon and his mother. They are the main sources of information for this patient. He is going to be placed on overnight observation with the diagnosis of UTI and sepsis. PAST MEDICAL HISTORY: 1. Cerebral palsy. 2. Hypertension. 3. Gastroesophageal reflux disease. 4. History of hiatal hernia with repair x2. 5. History of chronically indwelling Luke catheter due to neurogenic bladder. 6. History of muscle flap rotation surgery for left hip ulcer that has healed since then. 7. Baclofen pump placed in the left hip area. MEDICATIONS: At home include: 1. Baclofen pump as previously stated. 2. Flomax 0.4 mg at bedtime. 3. Senna 8.6 mg q.p.m. 4. Colace 100 mg daily. 5. Calcium carbonate 1000 mg daily. 6. Vitamin E and D 1 tablet daily. 7. Vitamin C 500 mg daily. 8. Multivitamin 1 tablet daily. 9. Zanaflex 10 mg at bedtime. 10. Lidocaine patch. 11. Lidoderm p.r.n. 12. Seroquel 25 mg in the morning and afternoon, and 50 mg at bedtime. 13. Vitamin D3 50,000 units weekly p.o. 14. Acetaminophen on a p.r.n. basis. 15. Rozerem 8 mg at bedtime p.r.n. 16. Toprol-XL 25 mg daily. 17. Nexium 20 mg daily. ALLERGIES: Multiple and include ATROPINE, CODEINE, MIDAZOLAM, OMEPRAZOLE, SCOPOLAMINE, SULFA. FAMILY HISTORY: Reviewed and noncontributory. SOCIAL HISTORY: The patient is living with his parents. He is wheelchair bound. He is quadriplegic due to history of cerebral palsy. There is no history of tobacco, alcohol, or drug use. REVIEW OF SYSTEMS: Very limited information from the patient. He has still been vomiting in the emergency department. He denies any abdominal pain. His urine had been cloudy and his catheter had clogged twice in the past week. All the remaining 12 systems were reviewed with the patient and were otherwise negative. PHYSICAL EXAMINATION GENERAL: The patient is a very pleasant 34-year-old male, who is in no acute distress. The patient is alert, awake, and oriented x2. VITAL SIGNS: Blood pressure 136/83, heart rate of 107 and regular, respiratory rate 20, oxygen saturation 96% on room air, temperature 99.3. HEENT: Head: Atraumatic, normocephalic. Eyes: Pupils are equal, reactive to light and accommodation. Oropharynx clear. Mucosa moist. NECK: Supple. No JVD, no bruits bilaterally. RESPIRATORY: Clear to auscultation bilaterally. CARDIOVASCULAR: Regular rate and rhythm. No murmurs. ABDOMEN: Soft, nontender. Bowel sounds present in all 4 quadrants. Baclofen pump is localized to the left hip area. EXTREMITIES: There is no edema. Pulses are +2 bilaterally. No clubbing or cyanosis. NEUROLOGIC: On neuro evaluation, the patient is quadriplegic, contracted bilateral upper extremities. Speech is largely dysarthric. SKIN: No ecchymotic areas, rashes or decubiti noted. LABORATORY DATA/DIAGNOSTIC STUDIES: Sodium 134, potassium 2.7, chloride 101, carbon dioxide 24, BUN 13, creatinine 0.93. Liver function tests with slightly elevated alkaline phosphatase of 105, otherwise unremarkable. Lactic acid of 0.5. CBC, white blood cell count of 12.4, hemoglobin 13.2, hematocrit of 38, and platelets of 297. Urinalysis, grossly positive urinalysis for nitrites, blood, esterase, wbc's, and bacteria. Portable chest x-ray, "right basilar infiltrate with possible right pleural effusion." ASSESSMENT AND PLAN: 1. Severe sepsis likely due to urinary tract infection. Although there is a question of right basilar infiltrate, he has no respiratory symptoms and I question chronicity of that. The patient may have chronic aspiration problems. He is going to be placed on overnight observation and treated with ceftriaxone for his urinary tract infection. 2. The patient's nausea and vomiting are likely due to his urinary tract infection . We will him place on Zofran . His PPI is going to be administered IV. The family requested for the patient to be tried on a soft diet , which is going to be provided. 3. Code status: the patient's code status is full. 4. For DVT prophylaxis: The patient is low risk. TIME SPENT: Approximately 62 minutes was spent on admission of this patient, more than half that time was spent [id number] with the patient and his family during the interview and physical exam. [id number]/[facility] #: [id number] MTDD
[2019-10-23] MEDS ORDERED: tiZANidine TAB* 2 MG PO SCH (21:00)
[2019-10-23] MEDS ORDERED: Tamsulosin CAP* 0.4 MG PO SCH (21:00)
[2019-10-23] MEDS: NS 0.9% 1000 ML** 1,000 ML IV SCH (23:21)
[2019-10-23] MEDS: Pantoprazole IV* 40 MG IV SCH (23:45)
[2019-10-24 05:59] LABS: ABS Basophils 0.1 10^3/ul (0-0.2); ABS Eosinophils 0.2 10^3/ul (0-0.6); ABS Lymphocytes 1.6 10^3/ul (1.0-4.8); ABS Monocytes 0.5 10^3/ul (0-0.8); ABS Neutrophils 4.5 10^3/ul (1.5-7.7); Eosinophil % 3.4 %; Hematocrit 33 % (42-52); Hemoglobin 11.6 g/dL (14.0-18.0); Lymphocyte % 22.8 %; Mean Corpuscular HGB Conc 35 g/dL (31-36); Mean Corpuscular Hemoglobin 30 pg (27-31); Mean Corpuscular Volume 86 fL (80-94); Mean Platelet Volume 8.4 fL (7.4-10.4); Platelet Count 239 10^3/uL (150-450); Red Blood Count 3.89 10^6 /uL (4.18-5.48); Red Cell Distribution Width 15 % (10-15); White Blood Count 6.9 10^3/uL (3.5-10.8)
[2019-10-24 06:18] LABS: BUN/Creatinine Ratio 21.2 (8-20); Calcium 8.4 mg/dL (8.6-10.3); EGFR African American 220.1 (>60); EGFR Non-African American 181.9 (>60); Potassium 3.5 mmol/L (3.5-5.0)
[2019-10-24] MEDS: Pantoprazole IV* 40 MG IV SCH (08:26)
[2019-10-24] MEDS: NS 0.9% 1000 ML** 1,000 ML IV SCH (08:35)
[2019-10-24] MEDS ORDERED: Ascorbic Acid TAB* 500 MG PO SCH (09:00)
[2019-10-24] MEDS ORDERED: Docusate CAP* 100 MG PO SCH (09:00)
[2019-10-24] MEDS ORDERED: Metoprolol Succinate XL TAB* 25 MG PO SCH (09:00)
[2019-10-24 12:14] VITALS: BP 125/71
[2019-10-24] MEDS ORDERED: cefTRIAXone(*) 1 GM in NS 0.9% 50 ML* 50 ML IVPB SCH (15:00)
[2019-10-24] MEDS ORDERED: Senna TAB 8.6 mg* TAB PO SCH (18:00)
--- NOTE | 2019-10-24 23:05 | DS ---
CC: Dr. Interiano * DISCHARGE SUMMARY: DATE OF ADMISSION: 10/23/19 DATE OF DISCHARGE: 10/24/19 PRIMARY CARE PROVIDER: Dr. Interiano. DISPOSITION AT DISCHARGE: Home. CONDITION AT DISCHARGE: Stable. DISCHARGE DIAGNOSIS: Sepsis due to urinary tract infection. SECONDARY DIAGNOSES: 1. Questionable pneumonia/infiltrate on chest x-ray, clinically not proven to be so. 2. History of cerebral palsy. 3. Hypertension. 4. Gastroesophageal reflux disease. 5. Hiatal hernia repair x2. 6. Chronic indwelling Luke catheter. 7. Status post muscle flap rotation surgery for left hip ulcer remotely. 8. Status post baclofen pump placement. MEDICATIONS AT DISCHARGE: Include: 1. Baclofen pump as previously stated. 2. Flomax 0.4 mg at bedtime. 3. Senna 8.6 mg q.p.m. 4. Colace 100 mg daily. 5. Calcium carbonate 1000 mg daily. 6. Vitamin E and D supplementation tablet daily. 7. Vitamin C 500 mg daily. 8. Multivitamin 1 tablet daily. 9. Zanaflex 10 mg at bedtime. 10. Lidocaine patch as previously used. 11. Seroquel 25 mg in the morning and afternoon and 50 at bedtime. 12. Vitamin D3 50,000 units weekly. 13. Acetaminophen on a p.r.n. basis. 14. Rozerem 8 mg at bedtime p.r.n. 15. Toprol-XL 25 mg daily. 16. Nexium 20 mg daily. 17. Cefdinir 300 mg b.i.d. for a total of 7 days. LABORATORY DATA AND STUDIES PERFORMED DURING THE HOSPITAL STAY: Included: On 10/24/19, white blood cell count of 6.9, hemoglobin of 11.6, hematocrit of 33, and platelets of 239. Sodium was 137, potassium 3.5, chloride 106, carbon dioxide 25, BUN 11, creatinine 0.52. Urinalysis was grossly positive for likely UTI with +2 protein, +1 ketones, +1 blood, +1 nitrite, +2 esterase, +3 bacteria, +3 wbc's. Urine cultures are pending at the time of dictation. Blood cultures were obtained and are still pending at the time of dictation, but I just confirmed with our microbiology department that so far they have been negative. HOSPITALIZATION COURSE: Collin Herndon is a 34-year-old male with a history of cerebral palsy who is quadriplegic due to that and has an indwelling Luke in place. At home, they have had problems with the Luke clogging a couple of times in the past week. The patient presented on 10/23/19 with nausea and vomiting that was intractable and cloudy urine. His urinalysis proved to be positive for likely UTI. Interestingly enough, his chest x-ray showed possibility of right-sided infiltrate, but the patient clinically did not have symptoms of pneumonia. Although he was vomiting, it did not appear clinically that the patient had any signs of aspiration. At this time, the patient was treated with ceftriaxone with good results. By the time of discharge, he is tolerating the diet without any problems. He still has some mild epigastric discomfort on evaluation, but otherwise feels ready to go home. He is going to be discharged home with cefdinir for 7 days. He is recommended to follow up with his primary care provider in approximately 4 to 7 days. PHYSICAL EXAMINATION AT THE TIME OF DISCHARGE: Blood pressure of 125/71, heart rate of 90 and regular, respiratory rate 16, oxygen saturation 100% on room, temperature 98.8. General: The patient is a very pleasant 34-year-old male who is in no acute distress. The patient has slight dysarthria due to cerebral palsy. The patient is alert and oriented x2, rather poor historian. HEENT: Head: Atraumatic, normocephalic. Eyes: Pupils are equal and reactive to light and accommodation. Oropharynx is clear. Mucosa moist. Neck: Supple. No JVD. No bruit bilaterally. Cardiovascular: Regular rate and rhythm. No murmur. Respiratory: Clear to auscultation bilaterally. Abdomen is soft. Mildly tender in the epigastric region with no rebound and no guarding. Bowel sounds are present in all 4 quadrants. Extremities: There is no edema. Pulses are +2 bilaterally. No clubbing or cyanosis. On evaluation of the skin, no ecchymotic areas or rashes noted. On neurologic evaluation, the patient's speech is slightly dysarthric. His bilateral upper extremities are contracted, but he is still able to move them somewhat. Bilateral lower extremities are paralyzed. Please note that this is a short summary of the patient's hospitalization. Please refer to further medical records for details. TIME SPENT: Approximately 40 minutes was spent on the patient's discharge. [id number]/[facility] #: [id number] JAMIR
== END 2019-10-24 14:35 | disposition home or self-care (01) ==
LOC: ED 12:23 → MED 16:57
PROVIDERS: ADMIT Internal Medicine; ATTEND Internal Medicine
DX: A41.9 Sepsis, unspecified organism (principal); N39.0 Urinary tract infection, site not specified; I10 Essential (primary) hypertension; K21.9 Gastro-esophageal reflux disease without esophagitis; K44.9 Diaphragmatic hernia without obstruction or gangrene; Z96.0 Presence of urogenital implants; Z79.899 Other long term (current) drug therapy; Z86.69 Personal history of other diseases of the nervous system and sense organs; Z88.2 Allergy status to sulfonamides; G80.9 Cerebral palsy, unspecified; N31.1 Reflex neuropathic bladder, not elsewhere classified
CPT/HCPCS: 36415; 71045; 80048; 80053; 81003; 83605; 84484; 85025; 85610; 85730; 87040; 87077; 87086; 96374; 99284; A9270-GY; G0378; J0456; J0696; J3370

== ENCOUNTER 2021-01-23 19:53 | Inpatient (IN) ==
[2021-01-23] MEDS ORDERED: NS 0.9% 1000 ml BAG 2,000 ML IV ONE (20:41)
[2021-01-23] MEDS ORDERED: Morphine 4 MG/ML VIAL (1 ml) IV ONE (20:42)
[2021-01-23] MEDS ORDERED: Morphine 4 MG/ML VIAL (1 ml) IV PRN (20:42)
[2021-01-23] MEDS ORDERED: Ondansetron 4 mg VIAL 2 MG/ML 2 ml VIAL IV ONE (20:43)
[2021-01-23] MEDS ORDERED: Iohexol 300 (CONTRAST) 10 ML SDV IV ONE (21:25)
[2021-01-23 22:18] LABS: Albumin 4.1 g/dL (3.2-5.2); Albumin/Globulin Ratio 1.1 (1-3); BUN/Creatinine Ratio 19.2 (8-20); C Reactive Protein 29.99 mg/L (<8.01); Calcium 9.2 mg/dL (8.6-10.3); EGFR African American 218.8 (>60); EGFR Non-African American 180.9 (>60); Globulin 3.8 g/dL (2-4); Total Bilirubin 0.5 mg/dL (0.2-1.0); Total Protein 7.9 g/dL (6.4-8.9)
[2021-01-23 22:33] LABS: ABS Lymphocytes 1.1 10^3/ul (1.0-4.8); ABS Monocytes 0.7 10^3/ul (0-0.8); ABS Neutrophils 7.3 10^3/ul (1.5-7.7); Eosinophil % 0.3 %; Hematocrit 39 % (42-52); Hemoglobin 13.1 g/dL (14.0-18.0); Lymphocyte % 11.8 %; Mean Corpuscular HGB Conc 34 g/dL (31-36); Mean Corpuscular Hemoglobin 30 pg (27-31); Mean Corpuscular Volume 88 fL (80-94); Mean Platelet Volume 8.8 fL (7.4-10.4); Platelet Count 324 10^3/uL (150-450); Potassium 3.6 mmol/L (3.5-5.0); Red Blood Count 4.45 10^6 /uL (4.18-5.48); Red Cell Distribution Width 15 % (10-15); White Blood Count 9.2 10^3/uL (3.5-10.8)
[2021-01-23 23:44] LABS: Urine Appearance Turbid; Urine Bacteria Absent (Absent); Urine Bilirubin Negative (Negative); Urine Blood 1+ (Negative); Urine Color Yellow; Urine Glucose Negative (Negative); Urine Ketones Negative (Negative); Urine Nitrite Positive (Negative); Urine Protein 3+(>=500 mg/dL) (Negative); Urine Red Blood Cell 3+(>10/hpf) (Absent); Urine Squamous Epithelial Cell Present (Absent); Urine Urobilinogen Negative (Negative); Urine White Blood Cell Absent (Absent)
[2021-01-24 01:31] LABS: Urine Specific Gravity > 1.060 (1.002-1.030)
[2021-01-24] MEDS ORDERED: VITAMIN A PO SCH (09:00)
[2021-01-24] MEDS ORDERED: CALCIUM 1000 MG PO SCH (09:00)
[2021-01-24] MEDS ORDERED: [UNRECOGNIZED DRUG - OTHER] PO SCH (09:00)
[2021-01-24] MEDS: Pantoprazole VIAL 40 MG VIAL IV SCH (10:44)
[2021-01-24] MEDS: Multivitamins/Minerals TAB PO SCH (10:45)
[2021-01-24] MEDS: Calcium (OSCAL) 500 mg TAB PO SCH (10:45)
[2021-01-24] MEDS ORDERED: Mesalamine RECTAL SUSP 4 GM/60 ML RECTAL.SUS PR SCH ×2 (11:00→21:00)
[2021-01-24] MEDS: VITAMIN A PO SCH (11:12)
[2021-01-24] MEDS: [UNRECOGNIZED DRUG - OTHER] PO SCH (11:12)
[2021-01-24] MEDS: Lidocaine PATCH 5% PATCH TRANSDERM PRN (12:55)
[2021-01-24] MEDS: cefTRIAXone 1 gm/50 mL NS BAG 1 GM/50 ML BAG IVPB SCH (13:17)
[2021-01-24] MEDS: Polyethylene Glycol 3350 17 GM PACKET PO SCH (14:29)
[2021-01-24] MEDS: Senna TAB 8.6 mg TAB PO SCH (17:24)
[2021-01-24] MEDS ORDERED: Ondansetron 4 mg VIAL 2 MG/ML 2 ml VIAL IV PRN (18:12)
[2021-01-24] MEDS ORDERED: Ramelteon 8 mg TAB (NF) PO SCH (21:00)
[2021-01-24] MEDS: Ramelteon 8 mg TAB (NF) PO SCH (21:21)
[2021-01-24] MEDS: Lidocaine Patch REMOVE PATCH PATCH OFF SCH (22:06)
[2021-01-25 06:20] LABS: ABS Eosinophils 0.1 10^3/ul (0-0.6); ABS Lymphocytes 1.3 10^3/ul (1.0-4.8); ABS Monocytes 0.9 10^3/ul (0-0.8); ABS Neutrophils 6.5 10^3/ul (1.5-7.7); Eosinophil % 0.7 %; Hematocrit 34 % (42-52); Hemoglobin 11.5 g/dL (14.0-18.0); Lymphocyte % 15.1 %; Mean Corpuscular HGB Conc 34 g/dL (31-36); Mean Corpuscular Hemoglobin 30 pg (27-31); Mean Corpuscular Volume 89 fL (80-94); Mean Platelet Volume 8.6 fL (7.4-10.4); Platelet Count 247 10^3/uL (150-450); Red Blood Count 3.78 10^6 /uL (4.18-5.48); Red Cell Distribution Width 14 % (10-15); White Blood Count 8.9 10^3/uL (3.5-10.8)
[2021-01-25 06:44] LABS: BUN/Creatinine Ratio 11.3 (8-20); Calcium 8.9 mg/dL (8.6-10.3); EGFR African American 214.1 (>60); EGFR Non-African American 176.9 (>60); Potassium 3.4 mmol/L (3.5-5.0)
[2021-01-25] MEDS ORDERED: cefTRIAXone 1 gm/50 mL NS BAG 1 GM/50 ML BAG IVPB SCH (07:00)
[2021-01-25] MEDS: cefTRIAXone 1 gm/50 mL NS BAG 1 GM/50 ML BAG IVPB SCH (09:21)
[2021-01-25] MEDS: Pantoprazole VIAL 40 MG VIAL IV SCH (09:22)
[2021-01-25] MEDS: Multivitamins/Minerals TAB PO SCH (10:54)
[2021-01-25] MEDS: Calcium (OSCAL) 500 mg TAB PO SCH (10:54)
[2021-01-25] MEDS: VITAMIN A PO SCH (10:55)
[2021-01-25] MEDS: [UNRECOGNIZED DRUG - OTHER] PO SCH (10:55)
[2021-01-25] MEDS: Polyethylene Glycol 3350 17 GM PACKET PO SCH (10:55)
[2021-01-25] MEDS ORDERED: Midazolam 2 mg/2 ml VIAL 1 mg/ml 2 ml VIAL (2 mg) ONE (13:56)
[2021-01-25] MEDS ORDERED: Lidocaine 2% PF 5 ML VIAL ONE (13:56)
[2021-01-25] MEDS ORDERED: fentaNYL 100 mcg/2 ml 50 MCG/ML VIAL ONE (14:12)
[2021-01-25] MEDS ORDERED: Phenylephrine 40 mcg/mL 10mL (400mcg) SYRINGE ONE (14:39)
[2021-01-25] MEDS: Senna TAB 8.6 mg TAB PO SCH (17:09)
[2021-01-25] MEDS ORDERED: Pantoprazole VIAL 40 MG VIAL IV SCH (21:00)
[2021-01-25] MEDS: Ramelteon 8 mg TAB (NF) PO SCH (21:49)
[2021-01-25] MEDS: Lidocaine Patch REMOVE PATCH PATCH OFF SCH (21:49)
[2021-01-26 04:29] LABS: ABS Eosinophils 0.1 10^3/ul (0-0.6); ABS Lymphocytes 1.5 10^3/ul (1.0-4.8); ABS Monocytes 0.7 10^3/ul (0-0.8); ABS Neutrophils 3.6 10^3/ul (1.5-7.7); Eosinophil % 2.5 %; Hematocrit 32 % (42-52); Hemoglobin 11.1 g/dL (14.0-18.0); Lymphocyte % 25.5 %; Mean Corpuscular HGB Conc 34 g/dL (31-36); Mean Corpuscular Hemoglobin 30 pg (27-31); Mean Corpuscular Volume 87 fL (80-94); Mean Platelet Volume 8.4 fL (7.4-10.4); Nucleated Red Blood Cells % 0.1; Platelet Count 217 10^3/uL (150-450); Red Cell Distribution Width 14 % (10-15)
[2021-01-26] MEDS: Polyethylene Glycol 3350 17 GM PACKET PO SCH (08:54)
[2021-01-26] MEDS: Calcium (OSCAL) 500 mg TAB PO SCH (09:01)
[2021-01-26] MEDS: Multivitamins/Minerals TAB PO SCH (09:06)
[2021-01-26] MEDS: cefTRIAXone 1 gm/50 mL NS BAG 1 GM/50 ML BAG IVPB SCH (09:08)
[2021-01-26] MEDS: [UNRECOGNIZED DRUG - OTHER] PO SCH (09:10)
[2021-01-26] MEDS: VITAMIN A PO SCH (09:10)
[2021-01-26] MEDS: Lidocaine PATCH 5% PATCH TRANSDERM PRN ×2 (12:30→20:17)
[2021-01-26] MEDS ORDERED: fentaNYL 100 mcg/2 ml 50 MCG/ML VIAL IV SLOW PU ONE (13:33)
[2021-01-26] MEDS ORDERED: Lidocaine 2% JELLY 6 ML TOPICAL ONE (14:30)
[2021-01-26] MEDS ORDERED: Sodium Phosphate ADULT ENEMA 133 ML BTL PR ONE (14:36)
[2021-01-26] MEDS: Senna TAB 8.6 mg TAB PO SCH (17:51)
[2021-01-26 18:44] LABS: Urine Appearance Cloudy; Urine Bilirubin Negative (Negative); Urine Blood 3+ (Negative); Urine Color Yellow; Urine Glucose Negative (Negative); Urine Ketones Negative (Negative); Urine Nitrite Negative (Negative); Urine Protein 2+(100 mg/dL) (Negative); Urine Specific Gravity 1.014 (1.002-1.030); Urine Urobilinogen Positive (Negative)
[2021-01-26 18:59] LABS: Urine Bacteria Absent (Absent); Urine Red Blood Cell 2+(6-10/hpf) (Absent); Urine Squamous Epithelial Cell Present (Absent); Urine White Blood Cell 3+(>20/hpf) (Absent)
[2021-01-26] MEDS: Lidocaine Patch REMOVE PATCH PATCH OFF SCH (20:17)
[2021-01-26] MEDS: Cephalexin SUSP ORALSYR 50 MG/ML PO SCH (20:28)
[2021-01-27] MEDS: Cephalexin SUSP ORALSYR 50 MG/ML PO SCH ×4 (01:08→21:35)
[2021-01-27] MEDS ORDERED: fentaNYL 100 mcg/2 ml 50 MCG/ML VIAL IV SLOW PU ONE (01:32)
[2021-01-27] MEDS ORDERED: fentaNYL 100 mcg/2 ml 50 MCG/ML VIAL IV ONE (05:10)
[2021-01-27] MEDS ORDERED: fentaNYL 100 mcg/2 ml 50 MCG/ML VIAL ONE (05:31)
[2021-01-27 07:59] LABS: Hematocrit 33 % (42-52); Hemoglobin 11.6 g/dL (14.0-18.0); Mean Corpuscular HGB Conc 35 g/dL (31-36); Mean Corpuscular Hemoglobin 30 pg (27-31); Mean Corpuscular Volume 87 fL (80-94); Mean Platelet Volume 8.8 fL (7.4-10.4); Platelet Count 272 10^3/uL (150-450); Red Blood Count 3.84 10^6 /uL (4.18-5.48); Red Cell Distribution Width 15 % (10-15); White Blood Count 6.5 10^3/uL (3.5-10.8)
[2021-01-27] MEDS ORDERED: Sodium Phosphate ADULT ENEMA 133 ML BTL PR ONE (09:20)
[2021-01-27] MEDS: Multivitamins/Minerals TAB PO SCH (09:49)
[2021-01-27] MEDS: Calcium (OSCAL) 500 mg TAB PO SCH (09:49)
[2021-01-27] MEDS: Polyethylene Glycol 3350 17 GM PACKET PO SCH (09:50)
[2021-01-27] MEDS: fentaNYL 100 mcg/2 ml 50 MCG/ML VIAL IV SLOW PU PRN ×2 (09:50→19:43)
[2021-01-27] MEDS: LUBIPROSTONE 24 MCG PO SCH ×2 (14:57→21:35)
[2021-01-27] MEDS: Senna TAB 8.6 mg TAB PO SCH (17:29)
[2021-01-27] MEDS: Lidocaine Patch REMOVE PATCH PATCH OFF SCH (21:36)
[2021-01-28] MEDS: fentaNYL 100 mcg/2 ml 50 MCG/ML VIAL IV SLOW PU PRN ×2 (01:34→10:23)
[2021-01-28] MEDS: Cephalexin SUSP ORALSYR 50 MG/ML PO SCH ×2 (01:44→08:52)
[2021-01-28] MEDS ORDERED: fentaNYL 100 mcg/2 ml 50 MCG/ML VIAL IV SLOW PU ONE (04:15)
[2021-01-28] MEDS ORDERED: Lactated Ringers 1000 ml BAG 1,000 ML IV ONE ×2 (05:39→07:02)
[2021-01-28 06:57] LABS: Hematocrit 35 % (42-52); Mean Corpuscular HGB Conc 34 g/dL (31-36); Mean Corpuscular Hemoglobin 30 pg (27-31); Mean Corpuscular Volume 87 fL (80-94); Mean Platelet Volume 8.7 fL (7.4-10.4); Platelet Count 275 10^3/uL (150-450); Red Blood Count 4.05 10^6 /uL (4.18-5.48); Red Cell Distribution Width 15 % (10-15); White Blood Count 6.5 10^3/uL (3.5-10.8)
[2021-01-28 07:08] LABS: Calcium 9.3 mg/dL (8.6-10.3); EGFR African American 209.5 (>60); EGFR Non-African American 173.1 (>60); Potassium 3.3 mmol/L (3.5-5.0)
[2021-01-28] MEDS ORDERED: Potassium Chlor 20 meq TAB.ER PO ONE (08:47)
[2021-01-28] MEDS: Calcium (OSCAL) 500 mg TAB PO SCH (08:52)
[2021-01-28] MEDS: Polyethylene Glycol 3350 17 GM PACKET PO SCH (08:52)
[2021-01-28] MEDS: LUBIPROSTONE 24 MCG PO SCH ×2 (08:52→19:45)
[2021-01-28] MEDS: Multivitamins/Minerals TAB PO SCH (08:52)
[2021-01-28] MEDS: Senna TAB 8.6 mg TAB PO SCH (17:03)
[2021-01-28] MEDS: Lidocaine Patch REMOVE PATCH PATCH OFF SCH (19:15)
[2021-01-28] MEDS: Amoxicillin/Clavul 875/125 TAB (Augmentin 875 tab) PO SCH (19:46)
[2021-01-29] MEDS: fentaNYL 100 mcg/2 ml 50 MCG/ML VIAL IV SLOW PU PRN ×2 (01:46→11:00)
[2021-01-29] MEDS ORDERED: fentaNYL 100 mcg/2 ml 50 MCG/ML VIAL IV SLOW PU ONE (03:24)
[2021-01-29 05:13] LABS: Hematocrit 36 % (42-52); Hemoglobin 12.1 g/dL (14.0-18.0); Mean Corpuscular HGB Conc 34 g/dL (31-36); Mean Corpuscular Hemoglobin 30 pg (27-31); Mean Corpuscular Volume 88 fL (80-94); Mean Platelet Volume 8.2 fL (7.4-10.4); Platelet Count 284 10^3/uL (150-450); Red Cell Distribution Width 15 % (10-15)
[2021-01-29] MEDS: Multivitamins/Minerals TAB PO SCH (09:06)
[2021-01-29] MEDS: Amoxicillin/Clavul 875/125 TAB (Augmentin 875 tab) PO SCH ×2 (09:06→19:39)
[2021-01-29] MEDS: Calcium (OSCAL) 500 mg TAB PO SCH (09:06)
[2021-01-29] MEDS: Polyethylene Glycol 3350 17 GM PACKET PO SCH (09:07)
[2021-01-29] MEDS: LUBIPROSTONE 24 MCG PO SCH ×2 (09:07→19:38)
[2021-01-29] MEDS ORDERED: fentaNYL PATCH 25 MCG/HR 1 PATCH TRANSDERM SCH (13:00)
[2021-01-29] MEDS: Senna TAB 8.6 mg TAB PO SCH (17:19)
[2021-01-29] MEDS: fentaNYL Patch Check Q Shift NOTE FOLLOW UP SCH (18:27)
[2021-01-29] MEDS: Lidocaine Patch REMOVE PATCH PATCH OFF SCH (19:21)
[2021-01-30] MEDS: fentaNYL Patch Check Q Shift NOTE FOLLOW UP SCH ×2 (06:54→18:36)
[2021-01-30 08:27] LABS: EGFR African American 200.9 (>60); Potassium 4.2 mmol/L (3.5-5.0)
[2021-01-30] MEDS: Amoxicillin/Clavul 875/125 TAB (Augmentin 875 tab) PO SCH ×2 (08:55→20:44)
[2021-01-30] MEDS: Polyethylene Glycol 3350 17 GM PACKET PO SCH (08:55)
[2021-01-30] MEDS: Multivitamins/Minerals TAB PO SCH (08:56)
[2021-01-30] MEDS: Calcium (OSCAL) 500 mg TAB PO SCH (08:56)
[2021-01-30] MEDS: LUBIPROSTONE 24 MCG PO SCH ×2 (08:56→20:45)
[2021-01-30] MEDS: Senna TAB 8.6 mg TAB PO SCH (17:30)
[2021-01-30] MEDS: Lidocaine Patch REMOVE PATCH PATCH OFF SCH (20:32)
[2021-01-31 06:24] LABS: ABS Eosinophils 0.3 10^3/ul (0-0.6); ABS Lymphocytes 1.5 10^3/ul (1.0-4.8); ABS Monocytes 0.5 10^3/ul (0-0.8); ABS Neutrophils 2.7 10^3/ul (1.5-7.7); Eosinophil % 6.5 %; Hematocrit 34 % (42-52); Hemoglobin 11.3 g/dL (14.0-18.0); Lymphocyte % 29.5 %; Mean Corpuscular HGB Conc 34 g/dL (31-36); Mean Corpuscular Hemoglobin 30 pg (27-31); Mean Corpuscular Volume 88 fL (80-94); Mean Platelet Volume 8.2 fL (7.4-10.4); Platelet Count 253 10^3/uL (150-450); Red Blood Count 3.83 10^6 /uL (4.18-5.48); Red Cell Distribution Width 15 % (10-15)
[2021-01-31 06:42] LABS: Calcium 8.9 mg/dL (8.6-10.3); EGFR Non-African American 150.4 (>60); Potassium 4.2 mmol/L (3.5-5.0)
[2021-01-31] MEDS: fentaNYL Patch Check Q Shift NOTE FOLLOW UP SCH ×2 (07:13→19:29)
[2021-01-31] MEDS: fentaNYL 100 mcg/2 ml 50 MCG/ML VIAL IV SLOW PU PRN (09:20)
[2021-01-31] MEDS: Polyethylene Glycol 3350 17 GM PACKET PO SCH (09:22)
[2021-01-31] MEDS: Calcium (OSCAL) 500 mg TAB PO SCH (09:22)
[2021-01-31] MEDS: LUBIPROSTONE 24 MCG PO SCH ×2 (09:23→21:21)
[2021-01-31] MEDS: Multivitamins/Minerals TAB PO SCH (09:23)
[2021-01-31] MEDS: Amoxicillin/Clavul 875/125 TAB (Augmentin 875 tab) PO SCH ×2 (09:23→21:28)
[2021-01-31] MEDS: Senna TAB 8.6 mg TAB PO SCH (18:01)
[2021-01-31] MEDS: Lidocaine Patch REMOVE PATCH PATCH OFF SCH (21:28)
[2021-02-01] MEDS: fentaNYL Patch Check Q Shift NOTE FOLLOW UP SCH (07:17)
[2021-02-01] MEDS: Polyethylene Glycol 3350 17 GM PACKET PO SCH (08:22)
[2021-02-01] MEDS: Calcium (OSCAL) 500 mg TAB PO SCH (08:27)
[2021-02-01] MEDS: Multivitamins/Minerals TAB PO SCH (08:29)
[2021-02-01] MEDS: Amoxicillin/Clavul 875/125 TAB (Augmentin 875 tab) PO SCH (08:32)
[2021-02-01] MEDS: LUBIPROSTONE 24 MCG PO SCH (08:32)
[2021-02-01 09:01] VITALS: BP 114/81
== END 2021-02-01 10:00 | disposition home or self-care (01) | DRG 368 ==
LOC: ED 19:53 → MED 01-24 08:35
PROVIDERS: ADMIT Internal Medicine; ATTEND Internal Medicine
PROC: O.GIEGD (2021-01-25 16:05)